=== PATIENT | female | born 1990 | race Caucasian/White ===

== ENCOUNTER 2016-12-24 15:50 | Emergency (ER) | payer OTHER ==
[2016-12-24 15:54] VITALS: BP 142/84; RESP 16; TEMP 97.3
[2016-12-24] MEDS ORDERED: IPRATROPIUM-ALBUTEROL 3 ML NEB INHALATION STA (16:08)
[2016-12-24] MEDS ORDERED: methylPREDNISolone SOD SUCCI 125 MG/2 ML VIAL IM STA (16:08)
[2016-12-24] MEDS ORDERED: diphenhydrAMINE 50 MG CAP PO STA (16:09)
--- NOTE | 2016-12-24 16:25 | XR ---
EXAMINATION TYPE: XR chest 2V DATE OF EXAM: 12/24/2016 COMPARISON: 01/30/2015 TECHNIQUE: PA and lateral views submitted. HISTORY: Cough FINDINGS: The lungs are clear and there is no pneumothorax, pleural effusion, or focal pneumonia. Mild hypert rophic change of the spine. IMPRESSION: 1. No acute process.
--- NOTE | 2016-12-24 16:41 | ED ---
Allergic Reaction HPI - General Chief complaint: Allergic Reaction Stated complaint: allergic reaction Time Seen by Provider: 12/24/16 16:01 Source: patient, RN notes reviewed Mode of arrival: ambulatory Limitations: no limitations - History of Present Illness Initial Comments: 26 yo female presents to the ER with cc of cough and shortness of breath. Patient states she's had this shortness of breath for about 2 weeks. Patient states she's been using her inhaler with no improvement. Patient allegedly therapy that she's not been giving her breathing treatment she cannot afford the treatment. Patient states then today shows around after holding her mother' s dog. Patient states it shoots to the left arm. Patient states that she hasn' t had any fever chills with this. Patient denies any increased shortness of breath since she noticed this rash. Patient states the shortness of breath was prior to the rash. Patient states she is not currently having any other symptoms at this time. Patient denies any recent fever, chills, chest pain, back pain, abdominal pain, nausea vomiting, numbness or tingling, dysuria or hematuria, constipation or diarrhea, headaches or visual changes, or any other current symptoms. - Related Data Home Medications Medication Instructions Recorded Confirmed Marlissa ( Control) 1 tab PO DAILY 08/27/16 08/27/16 Previous Rx's Medication Instructions Recorded Sulfamethox-Tmp 800-160Mg [Bactrim 1 tab PO Q12HR #28 tab 08/27/16 DS 800-160 mg] Albuterol Inhaler [Ventolin Hfa 1 - 2 puff INHALATION Q4-6H PRN #1 12/24/16 Inhaler] inhaler Albuterol Nebulized [Ventolin 2.5 mg INHALATION Q4H #20 nebu 12/24/16 Nebulized] diphenhydrAMINE [Benadryl] 50 mg PO HS PRN #5 capsule 12/24/16 predniSONE 50 mg PO DAILY #5 tab 12/24/16 Allergies Allergy/AdvReac Type Severity Reaction Status Date / Time gonzalez Allergy Rash/Hives Verified 12/24/16 15:51 gonzalez flavor Allergy Rash/Hives Verified 12/24/16 15:51 Penicillins Allergy Unknown Verified 12/24/16 15:51 Childhood Review of Systems ROS Statement: Those systems with pertinent positive or pertinent negative responses have been documented in the HPI. ROS Other: All systems not noted in ROS Statement are negative. Past Medical History Past Medical History: Asthma Additional Past Medical History / Comment(s): migraines History of Any Multi-Drug Resistant Organisms: None Reported Additional Past Surgical History / Comment(s): eye Past Psychological History: Anxiety, Bipolar, Depression, Schizophrenia Smoking Status: Current every day smoker Past Alcohol Use History: None Reported Past Drug Use History: Marijuana General Exam - General Exam Comments Initial Comments: General: The patient is awake and alert, in no distress, and does not appear acutely ill. Eye: Pupils are equal, round and reactive to light, extra-ocular movements are intact; there is normal conjunctiva bilaterally. No signs of icterus. Ears, nose, mouth and throat: There are moist mucous membranes. Neck: The neck is supple, there is no tenderness. Cardiovascular: There is a regular rate and rhythm. No murmur, rub or gallop is appreciated. Respiratory: Lungs are clear to auscultation, respirations are non-labored, breath sounds are equal. No wheezes, stridor, rales, or rhonchi. Gastrointestinal: Soft, non-distended, non-tender abdomen without masses or organomegaly noted. There is no rebound or guarding present. No CVA tenderness. Bowel sounds are unremarkable. Back: There is no tenderness to palpation in the midline. There is no obvious deformity. No rashes noted. Musculoskeletal: Normal ROM, no tenderness, There is no pedal edema. There is no calf tenderness or swelling. Sensation intact. Pulses equal bilaterally 2+. Neurological: CN II-XII intact, There are no obvious motor or sensory deficits. Coordination appears grossly intact. Speech is normal. Skin: Skin is warm and dry and she does appear to have mild urticaria to the left arm into the abdomen and back. Psychiatric: Cooperative, appropriate mood & affect, normal judgment. Limitations: no limitations Course Vital Signs 12/24/16 15:51 Temperature 97.3 F L Pulse Rate 93 Respiratory 16 Rate Blood Pressure 142/84 O2 Sat by Pulse 99 Oximetry Medical Decision Making - Medical Decision Making 26-year-old female presents with what appears to be an ALLERGIC reaction as well as asthma exacerbation at this time we well. The patient breathing treatment in chest x-ray. This time reviewed patient is feeling better. We give her prescription for breathing treatments for home as well as a new inhaler prescription as well as start patient steroids. We discussed taking Benadryl for itching. Discussed return parameters and follow-up. Patient is agreeable with plan QUESTIONS have been answered. They will be discharged home. - Radiology Data Radiology results: report reviewed, image reviewed Disposition Clinical Impression: Allergic reaction, Asthma exacerbation Disposition: HOME SELF-CARE Condition: Stable Instructions: Asthma (ED) Additional Instructions: Please use medication as discussed. Please follow up with family doctor if symptoms have not improved over the next two days. Please return to the emergency room if your symptoms increase or worsen or for any other concerns. Prescriptions: Albuterol Inhaler [Ventolin Hfa Inhaler] 1 - 2 puff INHALATION Q4-6H PRN #1 inhaler PRN Reason: Cough Albuterol Nebulized [Ventolin Nebulized] 2.5 mg INHALATION Q4H #20 nebu diphenhydrAMINE [Benadryl] 50 mg PO HS PRN #5 capsule PRN Reason: Itching predniSONE 50 mg PO DAILY #5 tab Referrals: Farzana Beasley MD [Primary Care Provider] - 1-2 days Time of Disposition: 16:44
[2016-12-24 17:02] VITALS: PULSE 82
== END 2016-12-24 17:01 | disposition home or self-care (01) ==
LOC: EC 15:50
DX: J45.901 Unspecified asthma with (acute) exacerbation (principal); T78.40XA Allergy, unspecified, initial encounter; F17.200 Nicotine dependence, unspecified, uncomplicated; Z79.3 Long term (current) use of hormonal contraceptives; Z88.0 Allergy status to penicillin; Z91.018 Allergy to other foods
CPT/HCPCS: 94640; 71020; 99283; 96372; J2930

== ENCOUNTER 2017-03-26 18:27 | Emergency (ER) | payer OTHER ==
[2017-03-26 18:39] VITALS: BP 126/81; PULSE 90; RESP 18; TEMP 99
--- NOTE | 2017-03-26 19:53 | ED ---
General Adult HPI - General Chief complaint: Skin/Abscess/Foreign Body Stated complaint: allergic reaction Time Seen by Provider: 03/26/17 19:34 Source: patient, RN notes reviewed Mode of arrival: ambulatory Limitations: no limitations - History of Present Illness Initial comments: 26-year-old female presents emergency chief complaint of hives. Patient history of 550 time that she's had hives. Patient states she saw her doctor they do not know with the complaint. Patient states they are itchy. Patient states she has not treated him anyway. Patient states she has not been any family care doctor for her eyes. Patient denies any new soaps or detergents in the house. Patient states that she has not had any other symptoms. Patient seen difficulty breathing or shortness of breath. Patient was concerned due to the hives so she thought that she should be evaluated.Patient denies any recent fever, chills, shortness of breath, chest pain, back pain, abdominal pain, nausea vomiting, numbness or tingling, dysuria or hematuria, constipation or diarrhea, headaches or visual changes, or any other current symptoms. - Related Data Home Medications Medication Instructions Recorded Confirmed Marlissa ( Control) 1 tab PO DAILY 08/27/16 08/27/16 Previous Rx's Medication Instructions Recorded Sulfamethox-Tmp 800-160Mg [Bactrim 1 tab PO Q12HR #28 tab 08/27/16 DS 800-160 mg] Albuterol Inhaler [Ventolin Hfa 1 - 2 puff INHALATION Q4-6H PRN #1 12/24/16 Inhaler] inhaler Albuterol Nebulized [Ventolin 2.5 mg INHALATION Q4H #20 nebu 12/24/16 Nebulized] diphenhydrAMINE [Benadryl] 50 mg PO HS PRN #5 capsule 12/24/16 predniSONE 50 mg PO DAILY #5 tab 12/24/16 diphenhydrAMINE [Benadryl] 50 mg PO HS PRN #5 capsule 03/26/17 predniSONE 50 mg PO DAILY #5 tab 03/26/17 Allergies Allergy/AdvReac Type Severity Reaction Status Date / Time bee venom protein (honey bee) Allergy Swelling Verified 03/26/17 18:39 gonzalez Allergy Rash/Hives Verified 03/26/17 18:39 gonzalez flavor Allergy Rash/Hives Verified 03/26/17 18:39 Penicillins Allergy Unknown Verified 03/26/17 18:39 Childhood Review of Systems ROS Statement: Those systems with pertinent positive or pertinent negative responses have been documented in the HPI. ROS Other: All systems not noted in ROS Statement are negative. Past Medical History Past Medical History: Asthma Additional Past Medical History / Comment(s): migraines History of Any Multi-Drug Resistant Organisms: None Reported Past Surgical History: Section Additional Past Surgical History / Comment(s): eye Past Psychological History: Anxiety, Bipolar, Depression, Schizophrenia Smoking Status: Current every day smoker Past Alcohol Use History: None Reported Past Drug Use History: Marijuana General Exam Limitations: no limitations General appearance: alert, in no apparent distress ENT exam: Present: normal exam, mucous membranes moist Neck exam: Present: normal inspection. Absent: tenderness, meningismus, lymphadenopathy Respiratory exam: Present: normal lung sounds bilaterally. Absent: respiratory distress, wheezes, rales, rhonchi, stridor Cardiovascular Exam: Present: regular rate, normal rhythm, normal heart sounds. Absent: systolic murmur, diastolic murmur, rubs, gallop, clicks Neurological exam: Present: alert, oriented X3 Psychiatric exam: Present: normal affect, normal mood Skin exam: Present: warm, dry, intact, urticaria Course Vital Signs 03/26/17 18:37 Temperature 99.0 F Pulse Rate 90 Respiratory 18 Rate Blood Pressure 126/81 O2 Sat by Pulse 96 Oximetry Medical Decision Making - Medical Decision Making 26-year-old female presents with urticaria. At this time the patient will be started on steroids. We discussed continued follow-up possibly an store standards associate or engineering geologist. We discussed return parameters all patient's questions. He stated the Luis they are given plan. All questions. Patient will be discharged. Disposition Clinical Impression: Urticaria Disposition: HOME SELF-CARE Condition: Stable Instructions: Urticaria (ED) Additional Instructions: Please use medication as discussed. Please follow up with family doctor if symptoms have not improved over the next two days. Please return to the emergency room if your symptoms increase or worsen or for any other concerns. Prescriptions: diphenhydrAMINE [Benadryl] 50 mg PO HS PRN #5 capsule PRN Reason: Itching predniSONE 50 mg PO DAILY #5 tab Referrals: Farzana Beasley MD [Primary Care Provider] - 1-2 days Time of Disposition: 19:53
== END 2017-03-26 19:58 | disposition home or self-care (01) ==
LOC: EC 18:27
DX: L50.9 Urticaria, unspecified (principal); F17.200 Nicotine dependence, unspecified, uncomplicated; Z79.3 Long term (current) use of hormonal contraceptives; Z88.0 Allergy status to penicillin; Z91.030 Bee allergy status; Z91.018 Allergy to other foods
CPT/HCPCS: 99283

== ENCOUNTER 2017-04-06 23:39 | Emergency (ER) | payer OTHER ==
--- NOTE | 2017-04-07 00:13 | ED ---
General Adult HPI - General Chief complaint: Abdominal Pain Stated complaint: abd pain Time Seen by Provider: 04/06/17 23:51 Source: patient, RN notes reviewed Mode of arrival: ambulatory Limitations: no limitations - History of Present Illness Initial comments: This is a 26-year-old female who presents to emergency department with chief complaint of lower abdominal pain for one week. Pain is described as cramping, worsening with any movement including walking and ascending stairs. Pain is relieved at rest. Patient reports taking Tylenol without relief. She has had a normal appetite but does feel nauseous. She states she is sexually active and claims that there is a possibility she could be . Patient claims she is supposed to be on control but has not had it refilled. Her recent periods are described as fluctuating between spotting and heavy flow. Denies fever, chills, chest pain, shortness of breath, vomiting, diarrhea, dysuria, hematuria, numbess, tingling, headache or vision changes. - Related Data Home Medications Medication Instructions Recorded Confirmed Marlissa ( Control) 1 tab PO DAILY 08/27/16 08/27/16 Previous Rx's Medication Instructions Recorded Sulfamethox-Tmp 800-160Mg [Bactrim 1 tab PO Q12HR #28 tab 08/27/16 DS 800-160 mg] Albuterol Inhaler [Ventolin Hfa 1 - 2 puff INHALATION Q4-6H PRN #1 12/24/16 Inhaler] inhaler Albuterol Nebulized [Ventolin 2.5 mg INHALATION Q4H #20 nebu 12/24/16 Nebulized] diphenhydrAMINE [Benadryl] 50 mg PO HS PRN #5 capsule 12/24/16 predniSONE 50 mg PO DAILY #5 tab 12/24/16 diphenhydrAMINE [Benadryl] 50 mg PO HS PRN #5 capsule 03/26/17 predniSONE 50 mg PO DAILY #5 tab 03/26/17 Allergies Allergy/AdvReac Type Severity Reaction Status Date / Time bee venom protein (honey bee) Allergy Swelling Verified 04/06/17 23:46 gonzalez Allergy Rash/Hives Verified 04/06/17 23:46 gonzalez flavor Allergy Rash/Hives Verified 04/06/17 23:46 Penicillins Allergy Unknown Verified 04/06/17 23:46 Childhood Review of Systems ROS Statement: Those systems with pertinent positive or pertinent negative responses have been documented in the HPI. ROS Other: All systems not noted in ROS Statement are negative. Past Medical History Past Medical History: Asthma Additional Past Medical History / Comment(s): migraines History of Any Multi-Drug Resistant Organisms: None Reported Past Surgical History: Section Additional Past Surgical History / Comment(s): eye Past Psychological History: Anxiety, Bipolar, Depression, Schizophrenia Smoking Status: Current every day smoker Past Alcohol Use History: Occasional Past Drug Use History: Marijuana General Exam - General Exam Comments Initial Comments: General: Awake and alert, well-developed; in no apparent distress. HEENT: Head atraumatic, normocephalic. Pupils are equal, round and reactive to light. Extraocular movements intact. Oropharynx moist without erythema or exudate. Neck: Supple. Normal ROM. No JVD. Trachea midline. No adenopathy. Cardiovascular: Regular rate and rhythm. No murmurs, rubs or gallops. Chest symmetrical. Respiratory: Lungs clear to auscultation bilaterally. No wheezes, rales or rhonchi. Normal respiratory efffort with no use of accessory muscles. Abdomen: Soft, non-distended. Mild tenderness along midline abdomen, more so in lower abdomen. No rigidity, rebound or guarding. Normal bowel sounds in all 4 quadrants. Skin: [place], warm and dry. Neurological: Alert and oriented x3. CN II-XII grossly intact. Speech is fluent and answers are appropriate. No focal neuro deficits. Psychiatric: Normal mood and affect. No overt signs of depression or anxiety noted. Limitations: no limitations Course Vital Signs 04/06/17 23:41 Temperature 98.0 F Pulse Rate 117 H Respiratory 20 Rate Blood Pressure 128/85 O2 Sat by Pulse 99 Oximetry Medical Decision Making - Medical Decision Making This is a 26-year-old female who presented with lower abdominal pain. She is in no acute distress and appears well. Physical exam was relatively benign with mild lower abdominal tenderness. CBC and CMP were unremarkable. UA was normal. test was negative. Patient was informed the next step management would be a pelvic exam but she defers it at this time. She would look to follow up with her primary care provider. She states that she has an appointment scheduled for this Tuesday. This case was discussed with attending physician, Dr. Aguilera. Disposition Clinical Impression: Abdominal pain Disposition: HOME SELF-CARE Condition: Good Instructions: Abdominal Pain (ED) Additional Instructions: Please follow up with your primary care provider in 1-2 days. Please return to the emergency department if symptoms worsen. Referrals: Farzana Beasley MD [Primary Care Provider] - 1-2 days Time of Disposition: 01:08
[2017-04-07 00:21] LABS: Appearance,Urine Clear (Clear); Basophils % (A) 0 %; Bilirubin,Urine Negative (Negative); CH 29.2; CHCM 33.2; Eosinophils # (A) 0.2 k/uL (0-0.7); Eosinophils % (A) 2 %; Glucose,Urine (UA) Negative (Negative); HCT 44.4 % (34.0-46.0); HDW 2.52; HGB 14.1 gm/dL (11.4-16.0); Ketones,Urine Negative (Negative); Leukocyte Esterase,Urine Negative (Negative); Luc # (Auto) 0.14; Luc % (Auto) 1; Lymphocytes # (A) 2.1 k/uL (1.0-4.8); Lymphocytes % (A) 22 %; MCH 28.1 pg (25.0-35.0); MCHC 31.8 g/dL (31.0-37.0); MCV 88.5 fL (80.0-100.0); Mean Platelet Volume 6.7; Monocytes # (A) 0.5 k/uL (0-1.0); Monocytes % (A) 5 %; Neutrophils # (A) 6.7 k/uL (1.3-7.7); Neutrophils % (A) 69 %; Nitrite,Urine Negative (Negative); Protein,Urine Negative (Negative); RBC 5.02 m/uL (3.80-5.40); RDW 15.2 % (11.5-15.5); Specific Gravity,Urine 1.012 (1.001-1.035); UA Billing (MACRO vs. MICRO) CHEM; Urobilinogen,Urine <2.0 mg/dL (<2.0); WBC 9.7 k/uL (3.8-10.6)
[2017-04-07 00:31] LABS: ALT 40 U/L (9-52); AST 18 U/L (14-36); Alkaline Phosphatase 89 U/L (38-126); Anion Gap 11 mmol/L; Blood Urea Nitrogen 12 mg/dL (7-17); Calcium 8.9 mg/dL (8.4-10.2); Carbon Dioxide 20 mmol/L (22-30); Chloride 108 mmol/L (98-107); Glucose 94 mg/dL (74-99); Non-African American GFR(MDRD) >60 (>60 ml/min/1.73 sqM); Potassium 4.1 mmol/L (3.5-5.1); Sodium 139 mmol/L (137-145); Total Bilirubin 0.4 mg/dL (0.2-1.3); Total Protein 6.9 g/dL (6.3-8.2)
[2017-04-07 00:50] VITALS: BP 118/75; PULSE 92; RESP 18; TEMP 97.8
== END 2017-04-07 01:18 | disposition home or self-care (01) ==
LOC: EC 23:39
DX: R10.30 Lower abdominal pain, unspecified (principal); R11.0 Nausea; F17.200 Nicotine dependence, unspecified, uncomplicated; Z79.3 Long term (current) use of hormonal contraceptives; Z88.0 Allergy status to penicillin; Z91.018 Allergy to other foods; Z91.030 Bee allergy status
CPT/HCPCS: 36415; 80053; 81003; 81025; 85025; 99284

== ENCOUNTER 2017-04-13 23:09 | Emergency (ER) | payer OTHER ==
[2017-04-13 23:15] VITALS: RESP 18
[2017-04-14 00:07] VITALS: BP 140/79; PULSE 82; TEMP 97.2
[2017-04-14] MEDS ORDERED: SODIUM CHLORIDE 0.9% 1,000 ML IV STA (00:23)
[2017-04-14] MEDS ORDERED: KETOROLAC 30 MG/ML 1 ML VIAL IVP STA (00:23)
[2017-04-14] MEDS ORDERED: diphenhydrAMINE 50 MG/ML 1 ML VIAL IVP STA (00:23)
[2017-04-14] MEDS ORDERED: METOCLOPRAMIDE 5 MG/ML 2 ML VIAL IVP STA (00:23)
[2017-04-14] MEDS ORDERED: ACETAMINOPHEN TAB 500 MG TAB PO STA (00:24)
[2017-04-14] MEDS ORDERED: ORPHENADRINE 30 MG/ML 2 ML VIAL IVP STA (00:25)
--- NOTE | 2017-04-14 00:31 | ED ---
Headache HPI - General Chief Complaint: Headache Stated Complaint: Ear Pain Time Seen by Provider: 04/13/17 23:56 Source: RN notes reviewed, old records reviewed Mode of arrival: ambulatory Limitations: no limitations - History of Present Illness Initial Comments: this is a 18-year-old female presents emergency Department chief complaint of a migraine-like headache for one day. Patient reports that she went to bed with a migraine headache and reports that she's had a couple episodes of vomiting. She reports that she's also had some intermittent lower abdominal pain, but denies any dysuria or changes in bowel movements. She states that it is not very severe. She states that her headache is now radiating towards her lower jaw and complains of left ear ache. Denies any difficulty swallowing or dental pain. Patient states she's had no fever or chills denies any neck pain. She reports that she has a history of migraines and this feels similar to previous migraines. She states she has not taken any medication to help with a migraine at this time. - Related Data Home Medications Medication Instructions Recorded Confirmed Marlissa ( Control) 1 tab PO DAILY 08/27/16 08/27/16 Previous Rx's Medication Instructions Recorded Sulfamethox-Tmp 800-160Mg [Bactrim 1 tab PO Q12HR #28 tab 08/27/16 DS 800-160 mg] Albuterol Inhaler [Ventolin Hfa 1 - 2 puff INHALATION Q4-6H PRN #1 12/24/16 Inhaler] inhaler Albuterol Nebulized [Ventolin 2.5 mg INHALATION Q4H #20 nebu 12/24/16 Nebulized] diphenhydrAMINE [Benadryl] 50 mg PO HS PRN #5 capsule 12/24/16 predniSONE 50 mg PO DAILY #5 tab 12/24/16 diphenhydrAMINE [Benadryl] 50 mg PO HS PRN #5 capsule 03/26/17 predniSONE 50 mg PO DAILY #5 tab 03/26/17 Azithromycin [Zithromax Z-pack] 250 mg PO DIRECTED #6 tab 04/14/17 Allergies Allergy/AdvReac Type Severity Reaction Status Date / Time bee venom protein (honey bee) Allergy Swelling Verified 04/13/17 23:14 gonzalez Allergy Rash/Hives Verified 04/13/17 23:14 gonzalez flavor Allergy Rash/Hives Verified 04/13/17 23:14 Penicillins Allergy Unknown Verified 04/13/17 23:14 Childhood Review of Systems ROS Statement: Those systems with pertinent positive or pertinent negative responses have been documented in the HPI. ROS Other: All systems not noted in ROS Statement are negative. Past Medical History Past Medical History: Asthma Additional Past Medical History / Comment(s): migraines History of Any Multi-Drug Resistant Organisms: None Reported Past Surgical History: Section Additional Past Surgical History / Comment(s): eye Past Psychological History: Anxiety, Bipolar, Depression, Schizophrenia Smoking Status: Current every day smoker Past Alcohol Use History: Occasional Past Drug Use History: Marijuana General Exam - General Exam Comments Initial Comments: this is a 18-year-old female. No acute distress. Limitations: no limitations General appearance: alert Head exam: Present: atraumatic, normocephalic, normal inspection Eye exam: Present: normal appearance, PERRL, EOMI. Absent: scleral icterus, conjunctival injection, periorbital swelling ENT exam: Present: normal exam, mucous membranes moist. Absent: TM's normal bilaterally (left TM slight erythema ) Neck exam: Present: normal inspection. Absent: tenderness, meningismus, lymphadenopathy Respiratory exam: Present: normal lung sounds bilaterally. Absent: respiratory distress, wheezes, rales, rhonchi, stridor Cardiovascular Exam: Present: regular rate, normal rhythm, normal heart sounds. Absent: systolic murmur, diastolic murmur, rubs, gallop, clicks GI/Abdominal exam: Present: soft, normal bowel sounds. Absent: distended, tenderness, guarding, rebound, rigid Extremities exam: Present: normal inspection, full ROM, normal capillary refill. Absent: tenderness, pedal edema, joint swelling, calf tenderness Back exam: Present: normal inspection Neurological exam: Present: alert, oriented X3, CN II-XII intact Expanded Patient oriented to: Present: person, place, time Speech: Present: fluid speech Cranial nerves: EOM's Intact: Normal, Facial Sensation: Normal Cerebellar function: Finger to Nose: Normal Upper motor neuron: Pronator Drift: Normal Sensory exam: Upper Extremity Light Touch: Normal, Lower Extremity Light Touch: Normal Motor strength exam: RUE: 5, LUE: 5, RLE: 5, LLE: 5 Eye Response: (4) open spontaneously Motor Response: (6) obeys commands Verbal Response: (5) oriented [place] Total: 15 Psychiatric exam: Present: normal affect, normal mood Skin exam: Present: warm, dry, intact, normal color. Absent: rash Course Vital Signs 04/13/17 04/14/17 23:13 00:04 Temperature 98.5 F 97.2 F L Pulse Rate 109 H 82 Respiratory 18 18 Rate Blood Pressure 130/87 140/79 O2 Sat by Pulse 98 97 Oximetry Medical Decision Making - Medical Decision Making this is a 18-year-old female presents emergency Department chief complaint of a migraine-like headache for one day. Patient reports that she went to bed with a migraine headache and reports that she's had a couple episodes of vomiting. She reports that she's also had some intermittent lower abdominal pain, She states that her headache is now radiating towards her lower jaw and complains of left ear ache. Patient is neurologically intact, she does have some photophobia related to this migraine and also has slightly erythematous left TM. Patient has no meningeal signs. Patient received IV fluids, norflex, toradol, reglan and benadryl. She reports that her headache has subsided and she feels 100% better. Patient will be started on azithromycin for ear infection, discussed that her blood work was all within normal limits. Patient agrees to treatmetn plan and will comply, return parameters discussed. - Lab Data Result diagrams: 04/14/17 00:53 04/14/17 00:53 Lab Results 04/14/17 04/14/17 04/14/17 Range/Units 00:47 00:47 00:53 WBC 8.3 (3.8-10.6) k/uL RBC 5.08 (3.80-5.40) m/uL Hgb 14.3 (11.4-16.0) gm/dL Hct 45.4 (34.0-46.0) % MCV 89.4 (80.0-100.0) fL MCH 28.2 (25.0-35.0) pg MCHC 31.6 (31.0-37.0) g/dL RDW 15.4 (11.5-15.5) % Plt Count 200 (150-450) k/uL Neutrophils % 67 % Lymphocytes % 24 % Monocytes % 6 % Eosinophils % 2 % Basophils % 0 % Neutrophils # 5.6 (1.3-7.7) k/uL Lymphocytes # 2.0 (1.0-4.8) k/uL Monocytes # 0.5 (0-1.0) k/uL Eosinophils # 0.2 (0-0.7) k/uL Basophils # 0.0 (0-0.2) k/uL Sodium (137-145) mmol/L Potassium (3.5-5.1) mmol/L Chloride (98-107) mmol/L Carbon Dioxide (22-30) mmol/L Anion Gap mmol/L BUN (7-17) mg/dL Creatinine (0.52-1.04) mg/dL Est GFR (MDRD) Af Amer (>60 ml/min/1.73 sqM) Est GFR (MDRD) Non-Af (>60 ml/min/1.73 sqM) Glucose (74-99) mg/dL Calcium (8.4-10.2) mg/dL Total Bilirubin (0.2-1.3) mg/dL AST (14-36) U/L ALT (9-52) U/L Alkaline Phosphatase (38-126) U/L Total Protein (6.3-8.2) g/dL Albumin (3.5-5.0) g/dL Urine Color Light Yellow Urine Appearance Cloudy H (Clear) Urine pH 7.0 (5.0-8.0) Ur Specific Start 1.007 (1.001-1.035) Urine Protein Negative (Negative) Urine Glucose (UA) Negative (Negative) Urine Ketones Negative (Negative) Urine Blood Small H (Negative) Urine Nitrite Negative (Negative) Urine Bilirubin Negative (Negative) Urine Urobilinogen <2.0 (<2.0) mg/dL Ur Leukocyte Esterase Negative (Negative) Urine RBC 1 (0-5) /hpf Urine WBC 3 (0-5) /hpf Ur Squamous Epith Cells 6 H (0-4) /hpf Amorphous Sediment Rare H (None) /hpf Urine Bacteria Rare H (None) /hpf Urine HCG, Qual Not Detected (Not Detectd) 04/14/17 Range/Units 00:53 WBC (3.8-10.6) k/uL RBC (3.80-5.40) m/uL Hgb (11.4-16.0) gm/dL Hct (34.0-46.0) % MCV (80.0-100.0) fL MCH (25.0-35.0) pg MCHC (31.0-37.0) g/dL RDW (11.5-15.5) % Plt Count (150-450) k/uL Neutrophils % % Lymphocytes % % Monocytes % % Eosinophils % % Basophils % % Neutrophils # (1.3-7.7) k/uL Lymphocytes # (1.0-4.8) k/uL Monocytes # (0-1.0) k/uL Eosinophils # (0-0.7) k/uL Basophils # (0-0.2) k/uL Sodium 140 (137-145) mmol/L Potassium 3.9 (3.5-5.1) mmol/L Chloride 105 (98-107) mmol/L Carbon Dioxide 24 (22-30) mmol/L Anion Gap 11 mmol/L BUN 13 (7-17) mg/dL Creatinine 0.80 (0.52-1.04) mg/dL Est GFR (MDRD) Af Amer >60 (>60 ml/min/1.73 sqM) Est GFR (MDRD) Non-Af >60 (>60 ml/min/1.73 sqM) Glucose 89 (74-99) mg/dL Calcium 9.4 (8.4-10.2) mg/dL Total Bilirubin 0.4 (0.2-1.3) mg/dL AST 24 (14-36) U/L ALT 42 (9-52) U/L Alkaline Phosphatase 81 (38-126) U/L Total Protein 6.7 (6.3-8.2) g/dL Albumin 4.0 (3.5-5.0) g/dL Urine Color Urine Appearance (Clear) Urine pH (5.0-8.0) Ur Specific Start (1.001-1.035) Urine Protein (Negative) Urine Glucose (UA) (Negative) Urine Ketones (Negative) Urine Blood (Negative) Urine Nitrite (Negative) Urine Bilirubin (Negative) Urine Urobilinogen (<2.0) mg/dL Ur Leukocyte Esterase (Negative) Urine RBC (0-5) /hpf Urine WBC (0-5) /hpf Ur Squamous Epith Cells (0-4) /hpf Amorphous Sediment (None) /hpf Urine Bacteria (None) /hpf Urine HCG, Qual (Not Detectd) Disposition Clinical Impression: Migraine, Otitis media Disposition: HOME SELF-CARE Condition: Good Instructions: Migraine Headache (ED) Additional Instructions: patient has to rest, increase fluids. Take nausea medicine if Migraine her nausea reoccurs. Take the antibiotic for the ear infection. Return to the emergency department if any alarming signs or symptoms occur. Prescriptions: Azithromycin [Zithromax Z-pack] 250 mg PO DIRECTED #6 tab Referrals: Farzana Beasley MD [Primary Care Provider] - 1-2 days Time of Disposition: 01:54
[2017-04-14 01:24] LABS: Basophils % (A) 0 %; CH 29.7; CHCM 33.4; Eosinophils # (A) 0.2 k/uL (0-0.7); Eosinophils % (A) 2 %; HCT 45.4 % (34.0-46.0); HDW 2.48; HGB 14.3 gm/dL (11.4-16.0); Luc # (Auto) 0.11; Luc % (Auto) 1; Lymphocytes % (A) 24 %; MCH 28.2 pg (25.0-35.0); MCHC 31.6 g/dL (31.0-37.0); MCV 89.4 fL (80.0-100.0); Mean Platelet Volume 6.9; Monocytes # (A) 0.5 k/uL (0-1.0); Monocytes % (A) 6 %; Neutrophils # (A) 5.6 k/uL (1.3-7.7); Neutrophils % (A) 67 %; RBC 5.08 m/uL (3.80-5.40); RDW 15.4 % (11.5-15.5); WBC 8.3 k/uL (3.8-10.6); WBC (Perox) 8.08
[2017-04-14 01:25] LABS: Amorphous Sediment,Urine Rare /hpf; Appearance,Urine Cloudy (Clear); Bacteria,Urine Rare /hpf; Bilirubin,Urine Negative (Negative); Glucose,Urine (UA) Negative (Negative); Ketones,Urine Negative (Negative); Leukocyte Esterase,Urine Negative (Negative); Nitrite,Urine Negative (Negative); Particle Count 3836; Protein,Urine Negative (Negative); RBC,Urine 1 /hpf (0-5); Specific Gravity,Urine 1.007 (1.001-1.035); Squamous Epithelial Cell,Urine 6 /hpf (0-4); UA Billing (MACRO vs. MICRO) MICRO; Urobilinogen,Urine <2.0 mg/dL (<2.0); WBC,Urine 3 /hpf (0-5)
[2017-04-14 01:49] LABS: ALT 42 U/L (9-52); AST 24 U/L (14-36); Alkaline Phosphatase 81 U/L (38-126); Anion Gap 11 mmol/L; Blood Urea Nitrogen 13 mg/dL (7-17); Calcium 9.4 mg/dL (8.4-10.2); Carbon Dioxide 24 mmol/L (22-30); Chloride 105 mmol/L (98-107); Glucose 89 mg/dL (74-99); Non-African American GFR(MDRD) >60 (>60 ml/min/1.73 sqM); Potassium 3.9 mmol/L (3.5-5.1); Sodium 140 mmol/L (137-145); Total Bilirubin 0.4 mg/dL (0.2-1.3); Total Protein 6.7 g/dL (6.3-8.2)
[2017-04-14] MEDS ORDERED: ONDANSETRON 4 MG ODT STARTER PACK 2 TAB BTL PO STA (02:00)
== END 2017-04-14 02:12 | disposition home or self-care (01) ==
LOC: EC 23:09
DX: H66.92 Otitis media, unspecified, left ear (principal); G43.909 Migraine, unspecified, not intractable, without status migrainosus; R11.10 Vomiting, unspecified; F17.200 Nicotine dependence, unspecified, uncomplicated; Z79.3 Long term (current) use of hormonal contraceptives
CPT/HCPCS: 99284 ×2; 96374 ×2; 96375 ×4; 96361 ×2; 36415; 80053; 85025; 81001; 81025; J1200; J2360; J2765; J1885; S0119

== ENCOUNTER 2017-08-02 21:24 | Emergency (ER) | payer OTHER ==
[2017-08-02 21:48] VITALS: BP 145/92; PULSE 95; RESP 16; TEMP 97.5
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
== END 2017-08-02 22:35 | disposition home or self-care (01) ==
LOC: EC 21:24
DX: J02.9 Acute pharyngitis, unspecified (principal); F17.200 Nicotine dependence, unspecified, uncomplicated; Z88.0 Allergy status to penicillin; Z91.018 Allergy to other foods; Z91.030 Bee allergy status
CPT/HCPCS: 99283

== ENCOUNTER 2018-01-18 19:22 | Emergency (ER) | payer OTHER ==
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
[2018-01-18 21:32] LABS: Amphetamine Screen,Urine Not Detected (NotDetected); Barbiturate Screen,Urine Not Detected (NotDetected); Benzodiazepines Screen,Urine Not Detected (NotDetected); Cocaine Screen,Urine Not Detected (NotDetected); Methadone Screen, Urine Not Detected (NotDetected); Opiate Screen,Urine Not Detected (NotDetected); Oxycodone Screen, Urine Not Detected (NotDetected); Phencyclidine Screen,Urine Not Detected (NotDetected); Tricyclic Antidepressant,Urine Not Detected (NotDetected); Urn Cannabinoid Scrn Detected (NotDetected)
[2018-01-18 23:59] VITALS: BP 141/74; PULSE 87; RESP 16; TEMP 98
== END 2018-01-18 23:45 | disposition home or self-care (01) ==
LOC: EC 19:22
DX: S09.92XA Unspecified injury of nose, initial encounter (principal); R51 Headache; R45.851 Suicidal ideations; F17.200 Nicotine dependence, unspecified, uncomplicated; Z79.899 Other long term (current) drug therapy; Y00.XXXA Assault by blunt object, initial encounter
CPT/HCPCS: 80306; 81025; 99285

== ENCOUNTER 2018-03-19 11:25 | Emergency (ER) | payer OTHER ==
[2018-03-19] MEDS ORDERED: METOCLOPRAMIDE 5 MG/ML 2 ML VIAL IVP STA (11:44)
[2018-03-19] MEDS ORDERED: SODIUM CHLORIDE 0.9% 1,000 ML IV STA (11:44)
[2018-03-19] MEDS ORDERED: diphenhydrAMINE 50 MG/ML 1 ML VIAL IVP STA (11:44)
--- NOTE | 2018-03-19 11:47 | ED ---
Abdominal Pain HPI - General Chief Complaint: Abdominal Pain Stated Complaint: Abd Pain Time Seen by Provider: 03/19/18 11:33 Source: patient, RN notes reviewed, old records reviewed Mode of arrival: ambulatory Limitations: no limitations - History of Present Illness Initial Comments: this Patient this time 7-year-old female presents emergency Department chief complaint of nausea, occasional abdominal pain for the past week. reports that the pain has been intermittent. Patient states that she's had no fevers or chills. She reports that she is concerned she could possibly be as she is one week late on her menstrual cycle. Patient is a female. Patient states that she's had no hematemesis or melena. Reports occasional diarrhea. Patient states she is no dysuria or hematuria. No abnormal vaginal bleeding or discharge. - Related Data Home Medications Medication Instructions Recorded Confirmed Ibuprofen [Advil] 400 mg PO Q8HR PRN 01/18/18 01/18/18 diphenhydrAMINE [Benadryl] 25 mg PO DAILY 01/18/18 01/18/18 diphenhydrAMINE [Benadryl] 50 mg PO HS 01/18/18 01/18/18 Previous Rx's Medication Instructions Recorded Nitrofurantoin Monohyd/M-Cryst 100 mg PO Q12HR #14 cap 03/19/18 [Macrobid] Eiv-Vqgx-Uskmi Acid 1 cap PO DAILY #20 cap 03/19/18 [-U Capsule (formulary)] Allergies Allergy/AdvReac Type Severity Reaction Status Date / Time bee venom protein (honey bee) Allergy Swelling Verified 03/19/18 11:31 gonzalez Allergy Rash/Hives Verified 03/19/18 11:31 gonzalez flavor Allergy Rash/Hives Verified 03/19/18 11:31 Penicillins Allergy Unknown Verified 03/19/18 11:31 Childhood atomoxetine [From Strattera] AdvReac SUCIDAL Verified 03/19/18 11:31 Review of Systems ROS Statement: Those systems with pertinent positive or pertinent negative responses have been documented in the HPI. ROS Other: All systems not noted in ROS Statement are negative. Past Medical History Past Medical History: Asthma Additional Past Medical History / Comment(s): migraines History of Any Multi-Drug Resistant Organisms: None Reported Past Surgical History: Section Additional Past Surgical History / Comment(s): eye Past Psychological History: Anxiety, Bipolar, Depression, Schizophrenia Smoking Status: Current every day smoker Past Alcohol Use History: Occasional Past Drug Use History: Marijuana General Exam - General Exam Comments Initial Comments: This is a 27-year-old female. Limitations: no limitations General appearance: alert, in no apparent distress Head exam: Present: atraumatic, normocephalic, normal inspection Eye exam: Present: normal appearance, PERRL, EOMI. Absent: scleral icterus, conjunctival injection, periorbital swelling ENT exam: Present: normal exam, mucous membranes moist Neck exam: Present: normal inspection. Absent: tenderness, meningismus, lymphadenopathy Respiratory exam: Present: normal lung sounds bilaterally. Absent: respiratory distress, wheezes, rales, rhonchi, stridor Cardiovascular Exam: Present: regular rate, normal rhythm, normal heart sounds. Absent: systolic murmur, diastolic murmur, rubs, gallop, clicks GI/Abdominal exam: Present: soft, normal bowel sounds. Absent: distended, tenderness, guarding, rebound, rigid Extremities exam: Present: normal inspection, full ROM, normal capillary refill. Absent: tenderness, pedal edema, joint swelling, calf tenderness Back exam: Present: normal inspection Neurological exam: Present: alert, oriented X3, CN II-XII intact Psychiatric exam: Present: normal affect, normal mood Skin exam: Present: warm, dry, intact, normal color. Absent: rash Course Vital Signs 03/19/18 03/19/18 11:29 12:59 Temperature 97.5 F L 98.1 F Pulse Rate 76 75 Respiratory 20 18 Rate Blood Pressure 106/71 140/70 O2 Sat by Pulse 100 99 Oximetry Medical Decision Making - Medical Decision Making 27-year-old feel presents today with concern for possibly . She lives of symptoms of lower abdominal pain intermittently, she was a week after her period. At this time patient's hCG was 450. Patient has no vaginal bleeding or discharge. Patient at this time laboratory was unremarkable. HCG level IS 450. Rh+ blood type. I discussed that she's too early to detect Patient with her . Discussed that she should follow-up with [facility] and recommended ultrasound. SHE IS A G7 FEMALE THIS TIME. SHE IS UP WITH [facility] AND WE'LL START THE PATIENT ON PRENATALS. I DISCUSSED RETURN PARAMETERS. PATIENT IS HISTORY PLAN WILL COMPLY. RETURN PARAMETERS WERE DISCUSSED. - Lab Data Result diagrams: 03/19/18 11:50 03/19/18 11:50 Lab Results 03/19/18 03/19/18 03/19/18 Range/Units 11:50 11:50 11:50 WBC 6.8 (3.8-10.6) k/uL RBC 5.06 (3.80-5.40) m/uL Hgb 13.2 (11.4-16.0) gm/dL Hct 42.6 (34.0-46.0) % MCV 84.0 (80.0-100.0) fL MCH 26.0 (25.0-35.0) pg MCHC 31.0 (31.0-37.0) g/dL RDW 15.0 (11.5-15.5) % Plt Count 217 (150-450) k/uL Neutrophils % 69 % Lymphocytes % 22 % Monocytes % 4 % Eosinophils % 4 % Basophils % 1 % Neutrophils # 4.7 (1.3-7.7) k/uL Lymphocytes # 1.5 (1.0-4.8) k/uL Monocytes # 0.3 (0-1.0) k/uL Eosinophils # 0.3 (0-0.7) k/uL Basophils # 0.0 (0-0.2) k/uL Hypochromasia Slight Sodium 141 (137-145) mmol/L Potassium 3.8 (3.5-5.1) mmol/L Chloride 108 H (98-107) mmol/L Carbon Dioxide 23 (22-30) mmol/L Anion Gap 10 mmol/L BUN 6 L (7-17) mg/dL Creatinine 0.72 (0.52-1.04) mg/dL Est GFR (CKD-EPI)AfAm >90 (>60 ml/min/1.73 sqM) Est GFR (CKD-EPI)NonAf >90 (>60 ml/min/1.73 sqM) Glucose 89 (74-99) mg/dL Calcium 8.7 (8.4-10.2) mg/dL Total Bilirubin 0.7 (0.2-1.3) mg/dL AST 16 (14-36) U/L ALT 23 (9-52) U/L Alkaline Phosphatase 66 (38-126) U/L Total Protein 7.5 (6.3-8.2) g/dL Albumin 4.5 (3.5-5.0) g/dL Amylase 47 (30-110) U/L Lipase 52 (23-300) U/L HCG, Quant 458.3 mIU/mL Urine Color Urine Appearance (Clear) Urine pH (5.0-8.0) Ur Specific [place] (1.001-1.035) Urine Protein (Negative) Urine Glucose (UA) (Negative) Urine Ketones (Negative) Urine Blood (Negative) Urine Nitrite (Negative) Urine Bilirubin (Negative) Urine Urobilinogen (<2.0) mg/dL Ur Leukocyte Esterase (Negative) Urine RBC (0-5) /hpf Urine WBC (0-5) /hpf Ur Squamous Epith Cells (0-4) /hpf Urine Bacteria (None) /hpf Urine Mucus (None) /hpf Urine Sperm (None) /hpf Urine HCG, Qual Detected (Not Detectd) Blood Type Blood Type Recheck 03/19/18 03/19/18 Range/Units 11:50 11:50 WBC (3.8-10.6) k/uL RBC (3.80-5.40) m/uL Hgb (11.4-16.0) gm/dL Hct (34.0-46.0) % MCV (80.0-100.0) fL MCH (25.0-35.0) pg MCHC (31.0-37.0) g/dL RDW (11.5-15.5) % Plt Count (150-450) k/uL Neutrophils % % Lymphocytes % % Monocytes % % Eosinophils % % Basophils % % Neutrophils # (1.3-7.7) k/uL Lymphocytes # (1.0-4.8) k/uL Monocytes # (0-1.0) k/uL Eosinophils # (0-0.7) k/uL Basophils # (0-0.2) k/uL Hypochromasia Sodium (137-145) mmol/L Potassium (3.5-5.1) mmol/L Chloride (98-107) mmol/L Carbon Dioxide (22-30) mmol/L Anion Gap mmol/L BUN (7-17) mg/dL Creatinine (0.52-1.04) mg/dL Est GFR (CKD-EPI)AfAm (>60 ml/min/1.73 sqM) Est GFR (CKD-EPI)NonAf (>60 ml/min/1.73 sqM) Glucose (74-99) mg/dL Calcium (8.4-10.2) mg/dL Total Bilirubin (0.2-1.3) mg/dL AST (14-36) U/L ALT (9-52) U/L Alkaline Phosphatase (38-126) U/L Total Protein (6.3-8.2) g/dL Albumin (3.5-5.0) g/dL Amylase (30-110) U/L Lipase (23-300) U/L HCG, Quant mIU/mL Urine Color Yellow Urine Appearance Cloudy H (Clear) Urine pH 6.0 (5.0-8.0) Ur Specific [place] 1.014 (1.001-1.035) Urine Protein Trace H (Negative) Urine Glucose (UA) Negative (Negative) Urine Ketones 2+ H (Negative) Urine Blood Negative (Negative) Urine Nitrite Negative (Negative) Urine Bilirubin Negative (Negative) Urine Urobilinogen <2.0 (<2.0) mg/dL Ur Leukocyte Esterase Small H (Negative) Urine RBC 1 (0-5) /hpf Urine WBC 9 H (0-5) /hpf Ur Squamous Epith Cells 6 H (0-4) /hpf Urine Bacteria Rare H (None) /hpf Urine Mucus Rare H (None) /hpf Urine Sperm Rare (None) /hpf Urine HCG, Qual (Not Detectd) Blood Type O Positive Blood Type Recheck No Disposition Clinical Impression: , Bacteriuria during Disposition: HOME SELF-CARE Condition: Good Instructions: (ED) Additional Instructions: Patient has follow-up with primary care physician. Return to emergency department if any alarming signs or symptoms occur. Take vitamins. Prescriptions: Nitrofurantoin Monohyd/M-Cryst [Macrobid] 100 mg PO Q12HR #14 cap Dcb-Xkin-Agzip Acid [-U Capsule (formulary)] 1 cap PO DAILY # 20 cap Is patient prescribed a controlled substance at d/c from ED?: No Referrals: Farzana Beasley MD [Primary Care Provider] - 1-2 days Sherry Pepper MD [STAFF PHYSICIAN] - 1-2 days Time of Disposition: 12:48
[2018-03-19 12:12] LABS: Appearance,Urine Cloudy (Clear); Bacteria,Urine Rare /hpf; Bilirubin,Urine Negative (Negative); Blood,Urine Negative (Negative); Color,Urine Yellow; Glucose,Urine (UA) Negative (Negative); Ketones,Urine 2+ (Negative); Leukocyte Esterase,Urine Small (Negative); Mucus,Urine Rare /hpf; Nitrite,Urine Negative (Negative); Protein,Urine Trace (Negative); RBC,Urine 1 /hpf (0-5); Specific Gravity,Urine 1.014 (1.001-1.035); Sperm,Urine Rare /hpf; Squamous Epithelial Cell,Urine 6 /hpf (0-4); Urobilinogen,Urine <2.0 mg/dL (<2.0); WBC,Urine 9 /hpf (0-5)
[2018-03-19 12:15] LABS: ALT 23 U/L (9-52); AST 16 U/L (14-36); Albumin 4.5 g/dL (3.5-5.0); Alkaline Phosphatase 66 U/L (38-126); Amylase 47 U/L (30-110); Anion Gap 10 mmol/L; Blood Urea Nitrogen 6 mg/dL (7-17); Calcium 8.7 mg/dL (8.4-10.2); Carbon Dioxide 23 mmol/L (22-30); Chloride 108 mmol/L (98-107); Glucose 89 mg/dL (74-99); Lipase 52 U/L (23-300); Potassium 3.8 mmol/L (3.5-5.1); Sodium 141 mmol/L (137-145); Total Bilirubin 0.7 mg/dL (0.2-1.3); Total Protein 7.5 g/dL (6.3-8.2)
[2018-03-19 12:19] LABS: Basophils % (A) 1 %; Eosinophils # (A) 0.3 k/uL (0-0.7); Eosinophils % (A) 4 %; HCT 42.6 % (34.0-46.0); HGB 13.2 gm/dL (11.4-16.0); Hypochromasia Slight; Lymphocytes # (A) 1.5 k/uL (1.0-4.8); Lymphocytes % (A) 22 %; Mean Platelet Volume 6.5; Monocytes # (A) 0.3 k/uL (0-1.0); Monocytes % (A) 4 %; Neutrophils # (A) 4.7 k/uL (1.3-7.7); Neutrophils % (A) 69 %; Platelet Count 217 k/uL (150-450); RBC 5.06 m/uL (3.80-5.40); WBC 6.8 k/uL (3.8-10.6)
[2018-03-19 12:31] LABS: HCG,Quantitative Serum 458.3 mIU/mL
[2018-03-19 13:02] VITALS: BP 140/70; PULSE 75; RESP 18; TEMP 98.1
== END 2018-03-19 12:59 | disposition home or self-care (01) ==
LOC: EC 11:25
DX: O99.89 Other specified diseases and conditions complicating pregnancy, childbirth and the puerperium (principal); R82.71 Bacteriuria; O26.891 Other specified pregnancy related conditions, first trimester; R10.9 Unspecified abdominal pain; R19.7 Diarrhea, unspecified; O99.331 Smoking (tobacco) complicating pregnancy, first trimester; F17.200 Nicotine dependence, unspecified, uncomplicated; Z79.899 Other long term (current) drug therapy; Z91.030 Bee allergy status; Z88.0 Allergy status to penicillin; Z88.8 Allergy status to other drugs, medicaments and biological substances; Z91.018 Allergy to other foods; Z3A.01 Less than 8 weeks gestation of pregnancy
CPT/HCPCS: 99284; 96374; 96375; 96361; 36415; 86900; 86901; 80053; 82150; 83690; 85025; 81001; 81025; 84702; 87086; J1200; J2765

== ENCOUNTER → 2018-03-23 | Outpatient (CLI) | payer OTHER | END | disposition home or self-care (01) | LOC: LABWHC1 10:38 | PROVIDERS: ATTEND Obstetrics & Gynecology | DX: N91.2 Amenorrhea, unspecified (principal) | CPT/HCPCS: 36415; 84702 ==

== ENCOUNTER → 2018-06-02 | Outpatient (CLI) | payer OTHER ==
[2018-06-03 02:43] LABS: Hemoglobin A1C 4.9 % (4.0-6.0)
== END ==
LOC: LABWHC1 14:11
PROVIDERS: ATTEND Obstetrics & Gynecology Maternal & Fetal Medicine
DX: Z33.1 Pregnant state, incidental (principal); Z3A.00 Weeks of gestation of pregnancy not specified
CPT/HCPCS: 36415; 82306; 82950; 83036

== ENCOUNTER 2018-09-25 12:37 | Outpatient (CLI) | payer OTHER ==
[2018-09-25 13:59] VITALS: BP 131/70; PULSE 110; RESP 18; TEMP 97.9
[2018-09-25 14:09] LABS: Basophils % (A) 0 %; Eosinophils # (A) 0.1 k/uL (0-0.7); Eosinophils % (A) 1 %; HCT 31.9 % (34.0-46.0); HGB 10.2 gm/dL (11.4-16.0); Hypochromasia Slight; Lymphocytes # (A) 0.6 k/uL (1.0-4.8); Lymphocytes % (A) 8 %; MCH 26.7 pg (25.0-35.0); MCV 83.4 fL (80.0-100.0); Monocytes # (A) 0.4 k/uL (0-1.0); Monocytes % (A) 5 %; Neutrophils % (A) 85 %; Platelet Count 149 k/uL (150-450); RBC 3.82 m/uL (3.80-5.40); RDW 15.6 % (11.5-15.5); WBC 7.1 k/uL (3.8-10.6)
[2018-09-25 14:15] LABS: Appearance,Urine Clear (Clear); Bacteria,Urine Few /hpf; Bilirubin,Urine Negative (Negative); Blood,Urine Negative (Negative); Color,Urine Yellow; Glucose,Urine (UA) Negative (Negative); Ketones,Urine 1+ (Negative); Leukocyte Esterase,Urine Large (Negative); Nitrite,Urine Negative (Negative); Protein,Urine 1+ (Negative); RBC,Urine 7 /hpf (0-5); Specific Gravity,Urine 1.013 (1.001-1.035); Squamous Epithelial Cell,Urine 2 /hpf (0-4); WBC,Urine 17 /hpf (0-5)
--- NOTE | 2018-10-17 10:43 | P.MSEPDOC ---
Presenting Problems - Arrival Data Date of Arrival on Unit: 09/25/18 Time of Arrival on Unit: 12:30 Mode of Transport: Wheelchair - Complaint OB-Reason for Admission/Chief Complaint: Acute Nausea/Vomiting, Other Comment: n/v/d, abd pressure. Medical History - Information : 7 Para: 7 Term: 5 : 2 Abortions: Spontaneous or Elective: 0 Number of Living Children: 6 - Gestational Age Gestational Age by RAMONA (wks/days): 31 Weeks and 0 Days - History Comment: hx of HPV, hsv type 1, BV Review of Systems - Review of Systems Constitutional: No problems Breast: No problems ENT: No problems Cardiovascular: No problems Respiratory: No problems Gastrointestinal: Diarrhea Genitourinary: No problems Musculoskeletal: No problems Neurological: No problems Skin: No problems Vital Signs - Temperature Temperature: 97.9 F Temperature Source: Oral - Pulse Right Brachial Pulse Rate: 110 Pulse Assessment Method: Automatic Cuff - Respirations Respiratory Rate: 18 Oxygen Delivery Method: Room Air - Blood Pressure Right Arm Blood Pressure: 131/70 Blood Pressure Mean: 90 Blood Pressure Source: Automatic Cuff Medical Screen Scoring (Pre) - Cervical Exam Dilation: Exam Deferred Membranes: Intact - Uterine Contractions Frequency: N/A - Maternal Vital Signs Maternal Temperature: N/A Maternal Blood Pressure: N/A Signs of Preeclampsia: N/A Maternal Respirations: N/A - Pain Assessment Pain Location and Character: Abdomen Pain Scale Used: Numeric (1 - 10) Pain Intensity: 7 Pain Description: *Acute Pain Frequency: Intermittent Pain Duration: 30 Pain Duration Units: Minutes Pain Behavior: Anxious, Vocalization Pain Aggravating Factors: Activity Non-Pharmacological Interventions: Darkened Room - Maternal Trauma Maternal Trauma: N/A - Assessment Baseline FHR: 140 Heart Rate - NICHD Category: Category I (Normal) = 0 NST: Reactive Position: N/A Station: N/A - Total Score Total Score (Pre): 0 - Level of Risk Level of Risk: Low (0-5) Physician Notification (Pre) - Physician Notified Physician Notified Date: 09/25/18 Physician Notified Time: 13:20 Physician/Practitioner Notifed:: yes Spoke With: te Holder Order Received: Yes - Notification Comment Comment: cbc, ua, influenza swab Physician Notification (Post) - Physician Notified Physician Notified Date: 09/25/18 Physician Notified Time: 14:50 Physician/Practitioner Notified:: Dr. Ariza Spoke With: Dr. Ariza New Order Received: Yes - Notification Comment Comment: Influenza results and other labs reported. Order received to discharge home. Disposition - Disposition OB Disposition: Discharge to home Discharge Date: 09/25/18 Discharge Time: 14:50 I agree with the RN Medical Screening Exam: Yes Risk & Benefit of care provided described in d/c instruction: Yes Diagnosis: RELATED CONDITIONS, UNSPECIFIED, SECOND TRIMESTER
== END 2018-09-25 15:13 | disposition home or self-care (01) ==
LOC: FBPOP 12:37
PROVIDERS: ATTEND Obstetrics & Gynecology
DX: O26.92 Pregnancy related conditions, unspecified, second trimester (principal); Z3A.31 31 weeks gestation of pregnancy
CPT/HCPCS: 59025; 85025; 81001; 87502; G0463; 99214

== ENCOUNTER 2018-11-17 23:18 | Outpatient (CLI) | payer OTHER ==
[2018-11-18 00:27] VITALS: BP 126/80; PULSE 86; RESP 18; TEMP 98
[2018-11-18 01:04] LABS: Appearance,Urine Clear (Clear); Bilirubin,Urine Negative (Negative); Blood,Urine Moderate (Negative); Color,Urine Light Yellow; Glucose,Urine (UA) Negative (Negative); Ketones,Urine Negative (Negative); Leukocyte Esterase,Urine Large (Negative); Nitrite,Urine Negative (Negative); PH, Urine 6.5 (5.0-8.0); Protein,Urine Negative (Negative); RBC,Urine 2 /hpf (0-5); Specific Gravity,Urine 1.006 (1.001-1.035); Squamous Epithelial Cell,Urine 1 /hpf (0-4); Urobilinogen,Urine <2.0 mg/dL (<2.0); WBC,Urine 8 /hpf (0-5)
[2018-11-18 01:06] LABS: Amphetamine Screen,Urine Not Detected (NotDetected); Barbiturate Screen,Urine Not Detected (NotDetected); Benzodiazepines Screen,Urine Not Detected (NotDetected); Cocaine Screen,Urine Not Detected (NotDetected); Methadone Screen, Urine Not Detected (NotDetected); Opiate Screen,Urine Not Detected (NotDetected); Oxycodone Screen, Urine Not Detected (NotDetected); Phencyclidine Screen,Urine Not Detected (NotDetected); Tricyclic Antidepressant,Urine Not Detected (NotDetected); Urn Cannabinoid Scrn Detected (NotDetected)
--- NOTE | 2018-11-18 06:49 | P.MSEPDOC ---
Presenting Problems - Arrival Data Date of Arrival on Unit: 11/18/18 Time of Arrival on Unit: 23:18 Mode of Transport: EMS - Complaint OB-Reason for Admission/Chief Complaint: Possible Onset of Labor, Vaginal Bleeding Comment: pt arrived by EMS for contractions and spotting Medical History - Information : 10 Para: 5 Term: 6 : 0 Abortions: Spontaneous or Elective: 3 Number of Living Children: 5 - Gestational Age Gestational Age by RAMONA (wks/days): 38 Weeks and 5 Days - History Complications: Prior Review of Systems - Review of Systems Constitutional: No problems Breast: No problems ENT: No problems Cardiovascular: No problems Respiratory: No problems Gastrointestinal: No problems Genitourinary: No problems Musculoskeletal: No problems Neurological: No problems Skin: No problems Vital Signs - Temperature Temperature: 98.0 F Temperature Source: Temporal Artery Scan - Pulse Right Brachial Pulse Rate: 86 Pulse Assessment Method: Automatic Cuff - Respirations Respiratory Rate: 18 Oxygen Delivery Method: Room Air - Blood Pressure Right Arm Blood Pressure: 126/80 Blood Pressure Mean: 95 Blood Pressure Source: Automatic Cuff Medical Screen Scoring (Pre) - Cervical Exam Dilation: 1-3 cm = 1 Effacement: More than 50% = 2 Membranes: Intact - Uterine Contractions Frequency: > 5 minutes apart = 1 Duration: > 40 seconds = 2 Intensity: N/A - Maternal Vital Signs Maternal Temperature: N/A Maternal Blood Pressure: N/A Signs of Preeclampsia: N/A Maternal Respirations: N/A - Pain Assessment Pain Location and Character: Abdomen Pain Scale Used: Numeric (1 - 10) Pain Intensity: 8 Pain Management Goal: 4 Pain Description: *Acute, Cramping, Pressure, Tightness Pain Radiation Location: none Pain Frequency: Intermittent Pain Duration: 8 Pain Duration Units: Hours Pain Behavior: Moving Slowly, Vocalization Pain Aggravating Factors: Contractions - Assessment Baseline FHR: 130 Heart Rate - NICHD Category: Category I (Normal) = 0 Position: N/A Station: N/A - Total Score Total Score (Pre): 6 - Level of Risk Level of Risk: Medium (6-9) Physician Notification (Pre) - Physician Notified Physician Notified Date: 11/17/18 Physician Notified Time: 23:45 Physician/Practitioner Notifed:: Dr. Mantilla Spoke With: Dr. Mantilla New Order Received: Yes - Notification Comment Comment: obtain UDA and UA, recheck cervix in an hour Medical Screen Scoring (Post) - Cervical Exam Dilation: 1-3 cm = 1 Effacement: More than 50% = 2 Membranes: Intact - Uterine Contractions Frequency: > 5 minutes apart = 1 Duration: N/A Intensity: N/A - Maternal Vital Signs Maternal Temperature: N/A Signs of Preeclampsia: N/A Maternal Respirations: N/A - Pain Assessment Pain Location and Character: Abdomen Pain Scale Used: Numeric (1 - 10) Pain Intensity: 8 Pain Description: *Acute, Cramping, Pressure, Tightness Pain Radiation Location: none Pain Frequency: Intermittent Pain Duration: 8 Pain Duration Units: Hours Pain Aggravating Factors: Contractions - Maternal Trauma Maternal Trauma: N/A - Assessment Heart Rate: 130 Heart Rate - NICHD Category: Category I (Normal) = 0 NST: Reactive Position: N/A Station: N/A - Total Score Total Score (Post): 4 - Post Treatment Level of Risk Post Treatment Level of Risk: Low (0-5) Physician Notification (Post) - Physician Notified Physician Notified Date: 11/18/18 Physician Notified Time: 00:55 Physician/Practitioner Notified:: Dr. Mantilla Spoke With: Dr. Mantilla New Order Received: Yes - Notification Comment Comment: discharge pt home, follow up with Dr. Melendez Disposition - Disposition OB Disposition: Triage, Discharge to home, Written follow up instructions reviewed Discharge Date: 11/18/18 Discharge Time: 01:15 I agree with the RN Medical Screening Exam: Yes Risk & Benefit of care provided described in d/c instruction: Yes Diagnosis: FALSE LABOR BEFORE 37 COMPLETED WEEKS OF GEST, THIRD TRI
== END 2018-11-18 01:15 | disposition home or self-care (01) ==
LOC: FBPOP 23:18
PROVIDERS: ATTEND Obstetrics & Gynecology
DX: O47.1 False labor at or after 37 completed weeks of gestation (principal); Z3A.38 38 weeks gestation of pregnancy
CPT/HCPCS: 59025; 81001; 80306; G0463; 99213

== ENCOUNTER 2018-11-18 07:57 | Inpatient (IN) | payer OTHER ==
[2018-11-18] MEDS ORDERED: CARBOPROST TROMETHAMINE 250 MCG/ML 1 ML AMP IM PRN (08:04)
[2018-11-18] MEDS ORDERED: LIDOCAINE 0.5% (PF) 5 MG/ML (50 ML SDV) SQ PRN (08:04)
[2018-11-18] MEDS ORDERED: OXYTOCIN 10 UNIT/ML 1 ML VIAL IM PRN (08:04)
[2018-11-18] MEDS ORDERED: TERBUTALINE 1 MG/ML VIAL SQ PRN (08:04)
[2018-11-18] MEDS ORDERED: METHYLERGONOVINE 0.2 MG/ML 1 ML AMP IM PRN (08:04)
[2018-11-18] MEDS ORDERED: LACTATED RINGERS 1,000 ML IV SCH (08:15)
[2018-11-18 08:45] LABS: Anisocytosis Slight; Basophils % (A) 0 %; Eosinophils # (A) 0.1 k/uL (0-0.7); Eosinophils % (A) 1 %; HCT 35.2 % (34.0-46.0); HGB 11.3 gm/dL (11.4-16.0); Hypochromasia Slight; Lymphocytes # (A) 1.4 k/uL (1.0-4.8); Lymphocytes % (A) 12 %; MCH 27.4 pg (25.0-35.0); MCHC 32.1 g/dL (31.0-37.0); MCV 85.6 fL (80.0-100.0); Mean Platelet Volume 7.7; Monocytes # (A) 0.6 k/uL (0-1.0); Monocytes % (A) 6 %; Neutrophils # (A) 8.8 k/uL (1.3-7.7); Neutrophils % (A) 80 %; Platelet Count 161 k/uL (150-450); Poikilocytosis Slight; RBC 4.11 m/uL (3.80-5.40); RDW 17.5 % (11.5-15.5); WBC 11.1 k/uL (3.8-10.6)
--- NOTE | 2018-11-18 09:17 | P.HPOB ---
History of Present Illness H&P Date: 11/18/18 Chief Complaint: Contractions This is a 27-year-old female 10 para 6 at 38-6/7 weeks who presents with active labor and feeling urge to push. She states she has had care with Dr. Melendez in [facility]. She states she was planning to do a vaginal after section. Her last delivery was a section for twins and she stated she delivered 2 weeks early. We have no records here and patient is not a good historian. She also has no custody of any of her children. One of the twins did shortly after secondary to a hypoplastic left heart. She has had vaginal deliveries with all of her other children besides the for twins. Review of Systems Constitutional: Denies chills, Denies fever Eyes: denies blurred vision, denies pain Ears, nose, mouth and throat: Denies headache, Denies sore throat Cardiovascular: Denies chest pain, Denies shortness of breath Respiratory: Denies cough Gastrointestinal: Reports abdominal pain Genitourinary: Reports pelvic pain, Reports Musculoskeletal: Reports low back pain Integumentary: Denies pruritus, Denies rash Neurological: Denies numbness, Denies weakness Psychiatric: Reports anxiety, Reports depression Past Medical History Past Medical History: Asthma Additional Past Medical History / Comment(s): migraines History of Any Multi-Drug Resistant Organisms: None Reported Past Surgical History: Section Additional Past Surgical History / Comment(s): eye Past Psychological History: Bipolar Smoking Status: Current every day smoker Past Alcohol Use History: None Reported Past Drug Use History: Marijuana (Daily) Medications and Allergies Home Medications Medication Instructions Recorded Confirmed Type Albuterol Inhaler [Ventolin Hfa 1 - 2 puff INHALATION RT-Q6H PRN 09/25/18 11/18/18 History Inhaler] MDD 1-2 puffs Pantoprazole Sodium [Protonix] 40 mg PO DAILY MDD 1 09/25/18 11/18/18 History Djf-Xvpf-Ocopm Acid 1 cap PO DAILY MDD 1 09/25/18 11/18/18 History [-U Capsule (formulary)] Allergies Allergy/AdvReac Type Severity Reaction Status Date / Time bee venom protein (honey bee) Allergy Swelling Verified 11/18/18 08:04 gonzalez Allergy Rash/Hives Verified 11/18/18 08:04 gonzalez flavor Allergy Rash/Hives Verified 11/18/18 08:04 Penicillins Allergy Unknown Verified 11/18/18 08:04 Childhood atomoxetine [From Strattera] AdvReac SUCIDAL Verified 11/18/18 08:04 quetiapine [From Seroquel] AdvReac Unknown Verified 11/18/18 08:04 Exam Osteopathic Statement: *. No significant issues noted on an osteopathic structural exam other than those noted in the History and Physical/Consult. Intake and Output 11/17/18 11/18/18 11/18/18 22:59 06:59 14:59 Other: Weight 97.976 kg HEENT: Within normal limits Heart: Regular rate and rhythm Lungs: Clear to auscultation bilaterally Abdomen: Cervix: 8 cm/90%/-1 station with bulging bag of water. heart tones: Minimal variability with no decelerations. Contractions: Every couple minutes. Extremities: Negative Homans Results Result Diagrams: 11/18/18 08:13 Abnormal Lab Results - Last 24 Hours (Table) 11/18/18 Range/Units 08:13 WBC 11.1 H (3.8-10.6) k/uL Hgb 11.3 L (11.4-16.0) gm/dL RDW 17.5 H (11.5-15.5) % Neutrophils # 8.8 H (1.3-7.7) k/uL Assessment and Plan (1) Term Current Visit: Yes Status: Acute Code(s): Z34.90 - ENCNTR FOR SUPRVSN OF NORMAL , UNSP, UNSP TRIMESTER SNOMED Code(s): 08112405 (2) Vaginal after () Current Visit: Yes Status: Acute Code(s): O34.219 - MATERNAL CARE FOR UNSP TYPE SCAR FROM PREVIOUS DEL SNOMED Code(s): 971946168 Plan: Admission for imminent delivery. Artificial rupture membranes and expectant management. Will obtain all labs. Will obtain social service consult due to positive drug screen for marijuana and history of no custody of her other children.
--- NOTE | 2018-11-18 09:35 | P.PROBDLV ---
Vaginal Delivery Note - . Vaginal Delivery Note: The patient underwent artificial rupture membranes with clear fluid noted. At approximately 9-1/2 cm she felt a strong urge to push and began pushing. Cervix did reduce around the 's head. She pushed admits head to a crown. With one further push, the 's head delivered across the perineum followed by the anterior shoulder. Nose and mouth were bulb suctioned. Nuchal cord 2 was reduced around the infant and then with one remaining push, the remainder the easily delivered and was placed on mother's abdomen. A viable male infant was noted with scores of 8 at 1 minute and 9 at 5 minutes. weight is pending at this time. Placenta delivered shortly thereafter, intact, with a three-vessel cord. Cord blood was obtained secondary to unknown blood type. Uterus did contract fairly well after oxytocin was given and uterine massage was carried out. Inspection of the perineum did reveal a small first- degree laceration that was not actively bleeding. Patient declined stitches. Estimated blood loss is approximately 150 mL's. Both mother and are in stable condition.
[2018-11-18 09:52] VITALS: BMI 39.5
[2018-11-18] MEDS ORDERED: diphenhydrAMINE 50 MG CAP PO PRN (09:58)
[2018-11-18] MEDS ORDERED: diphenhydrAMINE 50 MG/ML 1 ML VIAL IVP PRN ×2 (09:58)
[2018-11-18] MEDS ORDERED: ACETAMINOPHEN TAB 325 MG TAB PO PRN (09:58)
[2018-11-18] MEDS ORDERED: diphenhydrAMINE 25 MG CAP PO PRN (09:58)
[2018-11-18] MEDS ORDERED: OXYTOCIN 20 UNITS/1000 ML NS 1,000 ML IV SCH (09:58)
[2018-11-18] MEDS ORDERED: HYDROCORTISONE 2.5% RECTAL CREAM 30 GM TUBE RECTAL PRN (09:58)
[2018-11-18] MEDS ORDERED: BENZOCAINE/MENTHOL SPRAY 1 GM/SPRAY AEROSOL TOPICAL PRN (09:58)
[2018-11-18] MEDS ORDERED: LANOLIN CREAM 5 GM TUBE TOPICAL PRN (09:58)
[2018-11-18] MEDS ORDERED: ZOLPIDEM 5 MG TAB PO PRN (09:58)
[2018-11-18] MEDS ORDERED: ALBUTEROL NEBULIZED 2.5 MG/3 ML INHALATION PRN (09:58)
[2018-11-18] MEDS ORDERED: WITCH HAZEL 1 EACH MED..PAD TOPICAL PRN (09:58)
[2018-11-18] MEDS ORDERED: SIMETHICONE 80 MG CHEWABLE PO PRN (09:58)
[2018-11-18] MEDS ORDERED: CLINDAMYCIN 900 MG in DEXTROSE 5% IN WATER 50 ML IVPB SCH ×2 (16:00)
[2018-11-18] MEDS: SENNOSIDES-DOCUSATE SODIUM 1 EACH TAB PO SCH (19:49)
[2018-11-18] MEDS: IBUPROFEN 600 MG TAB PO PRN (19:49)
--- NOTE | 2018-11-18 20:18 | P.MSEPDOC ---
Presenting Problems - Arrival Data Date of Arrival on Unit: 11/18/18 Time of Arrival on Unit: 08:18 Medical History - Information : 10 Para: 6 Term: 5 : 2 Abortions: Spontaneous or Elective: 3 Number of Living Children: 5 - Gestational Age Gestational Age by RAMONA (wks/days): 38 Weeks and 5 Days Vital Signs - Temperature Temperature: 98.4 F Temperature Source: Oral - Pulse Right Brachial Pulse Rate: 80 Pulse Assessment Method: Automatic Cuff - Respirations Respiratory Rate: 17 Oxygen Delivery Method: Room Air - Blood Pressure Right Arm Blood Pressure: 131/80 Blood Pressure Mean: 97 Blood Pressure Source: Automatic Cuff Disposition - Disposition OB Disposition: Admit I agree with the RN Medical Screening Exam: Yes Risk & Benefit of care provided described in d/c instruction: Yes Diagnosis: MATERN CARE FOR LOW TRANSVERSE SCAR FROM PREV DEL
--- NOTE | 2018-11-19 05:19 | P.PNOBGVD ---
Subjective - Subjective Principal diagnosis: Status post vaginal delivery day #1 Interval history: Patient is doing okay. She still complains of some lower abdominal cramps and pain. Lochia is decreasing. She is planning on breast-feeding but hasn't started yet. Patient reports: Reports appetite normal, Reports voiding normally, Reports pain well controlled, Reports ambulating normally [place]: other (In level I nursery) Objective - Latest Vital Signs Latest vital signs: Vital Signs Temp Pulse Resp BP Pulse Ox 11/19/18 00:00 98.7 F 89 18 123/75 100 11/18/18 20:17 98.4 F 80 17 131/80 11/18/18 20:00 98.7 F 89 18 123/75 100 11/18/18 16:00 98.4 F 80 17 131/80 11/18/18 11:13 73 16 134/76 11/18/18 10:44 77 16 135/82 11/18/18 10:13 81 16 133/90 11/18/18 09:58 98.3 F 80 17 125/70 11/18/18 09:43 81 17 131/75 11/18/18 09:28 80 16 135/79 11/18/18 09:13 98.3 F 85 16 135/75 Intake and Output 11/18/18 11/18/18 11/19/18 14:59 22:59 06:59 Other: # Voids 1 Weight 97.976 kg - Exam Extremities: Present: normal. Absent: tenderness Abdomen: Present: normal appearance, soft. Absent: distention, tenderness Uterus: Present: normal, firm. Absent: tenderness - Labs Labs: Abnormal Lab Results - Last 24 Hours (Table) 11/18/18 Range/Units 08:13 WBC 11.1 H (3.8-10.6) k/uL Hgb 11.3 L (11.4-16.0) gm/dL RDW 17.5 H (11.5-15.5) % Neutrophils # 8.8 H (1.3-7.7) k/uL Assessment and Plan Assessment: Status post vaginal delivery after day #1 (1) Term Current Visit: Yes Status: Acute Code(s): Z34.90 - ENCNTR FOR SUPRVSN OF NORMAL , UNSP, UNSP TRIMESTER SNOMED Code(s): 51193804 (2) Vaginal after () Current Visit: Yes Status: Acute Code(s): O34.219 - MATERNAL CARE FOR UNSP TYPE SCAR FROM PREVIOUS DEL SNOMED Code(s): 442005073 Plan: Continue with care. Anticipate discharge home tomorrow.
[2018-11-19 07:51] LABS: Anisocytosis Slight; Basophils % (A) 0 %; Eosinophils # (A) 0.1 k/uL (0-0.7); Eosinophils % (A) 1 %; HCT 30.3 % (34.0-46.0); Hypochromasia Slight; Lymphocytes # (A) 1.6 k/uL (1.0-4.8); Lymphocytes % (A) 20 %; MCH 27.9 pg (25.0-35.0); MCHC 32.2 g/dL (31.0-37.0); MCV 86.6 fL (80.0-100.0); Mean Platelet Volume 8.1; Monocytes # (A) 0.5 k/uL (0-1.0); Monocytes % (A) 6 %; Neutrophils # (A) 5.5 k/uL (1.3-7.7); Neutrophils % (A) 70 %; Platelet Count 131 k/uL (150-450); Poikilocytosis Slight; RDW 17.6 % (11.5-15.5); WBC 7.9 k/uL (3.8-10.6)
[2018-11-19 08:02] LABS: HGB 9.8 gm/dL (11.4-16.0)
[2018-11-19] MEDS: SENNOSIDES-DOCUSATE SODIUM 1 EACH TAB PO SCH ×2 (08:19→21:37)
[2018-11-19] MEDS: PANTOPRAZOLE 40 MG TABLET PO SCH (08:20)
[2018-11-19] MEDS: IBUPROFEN 600 MG TAB PO PRN (21:05)
--- NOTE | 2018-11-20 08:08 | P.DS ---
Providers Date of admission: 11/18/18 07:57 Expected date of discharge: 11/20/18 Attending physician: Glenny Mantilla Primary care physician: Stated None - Discharge Diagnosis(es) (1) Term Current Visit: Yes Status: Acute (2) Vaginal after () Current Visit: Yes Status: Acute Hospital Course: This is a 27-year-old female 10 para 6 at 38-6/7 weeks who presented in active labor on 11/18/2018. She delivered a viable male with scores of 8 at 1 minute and 9 at 5 minutes and weight of 8 lbs. 4 oz. and nuchal cord 2 on 11/18/2018 via vaginal after . Her course has been uncomplicated. Lochia is decreasing. Pain is well-controlled. Vital signs are stable. Abdomen is soft with fundus firm and nontender. Extremities show negative Homans. Impression is status post vaginal delivery day #2. Plan is to discharge home today. She will be given a prescription for ibuprofen. She is advised to follow-up with Dr. Jara who is her family services worker at [facility] in 6 weeks. Routine instructions are given. She is advised to call Dr. Jara's office if she has any further questions or concerns prior to her visit. Procedures: Vaginal after of a viable male on 11/18/2018 Patient Condition at Discharge: Stable Plan - Discharge Summary New Discharge Prescriptions: New Ibuprofen [Motrin] 600 mg PO Q6HR PRN #30 tab PRN Reason: Mild Pain Or Fever >= 100.5 Continue Lcw-Wjur-Gqlxb Acid [-U Capsule (formulary)] 1 cap PO DAILY MDD 1 No Action Pantoprazole Sodium [Protonix] 40 mg PO DAILY MDD 1 Albuterol Inhaler [Ventolin Hfa Inhaler] 1 - 2 puff INHALATION RT-Q6H PRN MDD 1-2 puffs PRN Reason: tid Discharge Medication List Albuterol Inhaler [Ventolin Hfa Inhaler] 1 - 2 puff INHALATION RT-Q6H PRN MDD 1- 2 puffs 09/25/18 [History] Pantoprazole Sodium [Protonix] 40 mg PO DAILY MDD 1 09/25/18 [History] Fod-Anah-Jozck Acid [-U Capsule (formulary)] 1 cap PO DAILY MDD 1 09/25/18 [History] Ibuprofen [Motrin] 600 mg PO Q6HR PRN #30 tab 11/20/18 [Rx] Follow up Appointment(s)/Referral(s): Shea Jara MD [REFERRING] - 6 Weeks Activity/Diet/Wound Care/Special Instructions: Instructions 1. Do not begin any exercise program for 3 weeks. 2. Do not resume sexual relations for 3 weeks or longer if uncomfortable. 3. You may take tub baths or showers at any time. 4. You may use tampons if desired after 3 weeks. 5. Keep the area of episiotomy (stitches) clean and dry. 6. If you are not nursing, wear a good fitting, supportive bra during the day and limit fluid intake for at least 1 week to prevent breast engorgement. 7. Call the office, [phone], within the next week to make appointment for your 6 week checkup if it has not already been made. 8. Report any of the following occurrences to the doctor promptly: a. Heavy, excessive bleeding b. Chills, fever c. Burning or frequency of urination d. Pain or redness and breasts if nursing e. Increasing pain or swelling in episiotomy (stitches). In addition to the above instructions, the following additional should be followed: 1. No heavy lifting or straining (exercising) until after 6 week checkup. 2. Keep abdominal incision clean and dry: You may wear a dressing if more comfortable. 3. Make office appointment for 10 days after going home or as instructed by her doctor. Discharge Disposition: HOME SELF-CARE
[2018-11-20] MEDS: IBUPROFEN 600 MG TAB PO PRN (08:20)
[2018-11-20 09:31] VITALS: RESP 18
[2018-11-20] MEDS: SENNOSIDES-DOCUSATE SODIUM 1 EACH TAB PO SCH (09:57)
[2018-11-20] MEDS: PANTOPRAZOLE 40 MG TABLET PO SCH (12:01)
[2018-11-20 12:35] LABS: HIV 1 AB Non-Reactive (Non-Reactive); HIV AB P24 Non-Reactive (Non-Reactive); HIV P24 AG Non-Reactive (Non-Reactive)
[2018-11-20 18:51] VITALS: BP 104/56; PULSE 88; TEMP 98.3
== END 2018-11-20 17:00 | disposition home or self-care (01) | DRG 807 ==
LOC: 4FBP 07:57
PROVIDERS: ADMIT Obstetrics & Gynecology; ATTEND Obstetrics & Gynecology
PROC: 10E0XZZ Delivery of Products of Conception, External Approach (ICD-10-PCS; principal; 2018-11-18)
DX: O34.211 Maternal care for low transverse scar from previous cesarean delivery (principal); Z37.0 Single live birth; O69.81X0 Labor and delivery complicated by cord around neck, without compression, not applicable or unspecified; O70.0 First degree perineal laceration during delivery; N85.8 Other specified noninflammatory disorders of uterus; Z3A.38 38 weeks gestation of pregnancy; O99.334 Smoking (tobacco) complicating childbirth; F17.200 Nicotine dependence, unspecified, uncomplicated; O99.52 Diseases of the respiratory system complicating childbirth; J45.909 Unspecified asthma, uncomplicated; G43.909 Migraine, unspecified, not intractable, without status migrainosus; Z79.899 Other long term (current) drug therapy; Z88.0 Allergy status to penicillin; Z88.8 Allergy status to other drugs, medicaments and biological substances; Z91.030 Bee allergy status; Z91.02 Food additives allergy status
CPT/HCPCS: 82947; 85025; 86762; 86780; 86850; 86900; 86901; 87340; 87390; 88307

== ENCOUNTER 2019-01-27 01:08 | Emergency (ER) | payer OTHER ==
[2019-01-27 01:35] VITALS: BP 139/83; PULSE 73; RESP 19; TEMP 98
--- NOTE | 2019-01-27 02:47 | ED ---
General Adult HPI - General Chief complaint: Skin/Abscess/Foreign Body Stated complaint: Bug Bites from home (poss bed bugs) Time Seen by Provider: 01/27/19 01:55 Source: patient Mode of arrival: ambulatory Limitations: no limitations - History of Present Illness Initial comments: Patient is a 28-year-old female presents emergency Department for headache and bug bites. Patient reports maxillary or frontal sinus tenderness for approximately 2 weeks. Patient reports her face is full with pressure that is exacerbated when bending forward. Patient also reports bilateral otalgia. Patient reports a frequent history of sinus infection. Patient is a smoker. Patient denies fever, nausea, vomiting, diarrhea. Patient also reports bug bites due to exposure to bedbugs. Patient reports itching that is worse especially in the evening. - Related Data Home Medications Medication Instructions Recorded Confirmed Albuterol Inhaler [Ventolin Hfa 1 - 2 puff INHALATION RT-Q6H PRN 09/25/18 11/18/18 Inhaler] MDD 1-2 puffs Pantoprazole Sodium [Protonix] 40 mg PO DAILY MDD 1 09/25/18 11/18/18 Rpg-Gzbj-Xzxwl Acid 1 cap PO DAILY MDD 1 09/25/18 11/18/18 [-U Capsule (formulary)] Previous Rx's Medication Instructions Recorded Ibuprofen [Motrin] 600 mg PO Q6HR PRN #30 tab 11/20/18 Doxycycline Monohydrate [Monodox] 100 mg PO Q12HR #20 cap 01/27/19 Hydrocortisone Cream 1 applic TOPICAL TID #1 bottle 01/27/19 [Hydrocortisone 1% Cream] Allergies Allergy/AdvReac Type Severity Reaction Status Date / Time bee venom protein (honey bee) Allergy Swelling Verified 11/18/18 08:04 gonzalez Allergy Rash/Hives Verified 11/18/18 08:04 gonzalez flavor Allergy Rash/Hives Verified 11/18/18 08:04 Penicillins Allergy Unknown Verified 11/18/18 08:04 Childhood atomoxetine [From Strattera] AdvReac SUCIDAL Verified 11/18/18 08:04 quetiapine [From Seroquel] AdvReac Unknown Verified 11/18/18 08:04 Review of Systems ROS Statement: Those systems with pertinent positive or pertinent negative responses have been documented in the HPI. ROS Other: All systems not noted in ROS Statement are negative. Past Medical History Past Medical History: Asthma Additional Past Medical History / Comment(s): migraines History of Any Multi-Drug Resistant Organisms: None Reported Past Surgical History: Section Additional Past Surgical History / Comment(s): eye Past Anesthesia/Blood Transfusion Reactions: No Reported Reaction Past Psychological History: Anxiety, Bipolar, Depression, PTSD Smoking Status: Current every day smoker Past Alcohol Use History: Occasional Past Drug Use History: Marijuana - Past Family History Mother Family Medical History: COPD General Exam Limitations: no limitations General appearance: alert, in no apparent distress Head exam: Present: atraumatic, normocephalic, normal inspection Eye exam: Present: normal appearance, PERRL, EOMI Pupils: Present: normal accommodation ENT exam: Present: normal exam, normal oropharynx, mucous membranes moist, TM's normal bilaterally, normal external ear exam, other (Maxillary and frontal sinus tenderness) Neck exam: Present: normal inspection, full ROM. Absent: tenderness, lymphadenopathy Respiratory exam: Present: normal lung sounds bilaterally Cardiovascular Exam: Present: regular rate, normal rhythm, normal heart sounds Extremities exam: Present: normal inspection, full ROM Back exam: Present: normal inspection, full ROM Neurological exam: Present: alert, oriented X3 Psychiatric exam: Present: normal affect, normal mood Skin exam: Present: warm, intact, normal color, rash (Single sporadic lesions on bilateral upper and lower extremities as well as trunk.) Course Vital Signs 01/27/19 01:32 Temperature 98.0 F Pulse Rate 73 Respiratory 19 Rate Blood Pressure 139/83 O2 Sat by Pulse 100 Oximetry Medical Decision Making - Medical Decision Making Patient is a 28-year-old female presenting to emergency Department with sinus pressure and rash. Patient was given hydrocortisone cream to cover for possible bed bug bites. Patient will be given a 10 day course of doxycycline to treat the sinus infection because she is ALLERGIC to amoxicillin.. Patient advised to follow-up with primary care.I counseled the patient for smoking cessation for greater than 3 minutes. Patient advised to wash all clothes suspected of bug bites. Strict return parameters were thoroughly discussed with patient was understanding and agreeable. Case discussed with physician. Disposition Clinical Impression: Sinusitis Disposition: HOME SELF-CARE Condition: Stable Instructions (If sedation given, give patient instructions): Sinusitis (ED) Additional Instructions: Please take prescribed medication as directed. Please follow up with primary care. Please return to emergency department if symptoms worsen. Prescriptions: Hydrocortisone Cream [Hydrocortisone 1% Cream] 1 applic TOPICAL TID #1 bottle Doxycycline Monohydrate [Monodox] 100 mg PO Q12HR #20 cap Is patient prescribed a controlled substance at d/c from ED?: No Referrals: Farzana Beasley MD [Primary Care Provider] - 1-2 days Time of Disposition: 02:47
== END 2019-01-27 02:50 | disposition home or self-care (01) ==
LOC: EC 01:08
DX: J32.9 Chronic sinusitis, unspecified (principal); J45.909 Unspecified asthma, uncomplicated; F17.200 Nicotine dependence, unspecified, uncomplicated; Z79.899 Other long term (current) drug therapy; Z88.0 Allergy status to penicillin; Z88.8 Allergy status to other drugs, medicaments and biological substances; Z91.030 Bee allergy status; Z91.018 Allergy to other foods
CPT/HCPCS: 99283

== ENCOUNTER 2019-04-07 19:08 | Emergency (ER) | payer OTHER ==
--- NOTE | 2019-04-07 19:37 | ED ---
General Adult HPI - General Source: patient Mode of arrival: EMS Limitations: no limitations <MinamelissanitishOswald reyes - Last Filed: 04/07/19 20:58> <Juan Clifford - Last Filed: 04/07/19 21:49> - General Chief complaint: Psychiatric Symptoms Stated complaint: Suicidal Ideation Time Seen by Provider: 04/07/19 19:24 - History of Present Illness Initial comments: Patient presents to the ED by ambulance for evaluation. Patient states that her fianc broke off their engagement today, and she states that she has become suic idal today. Patient states that she has had thoughts of overdosing on her Zoloft, however she denies suicidal or self-harm attempt. She states that she uses marijuana, and she last used marijuana 4 days ago. Patient denies any other illicit drug use. Patient denies medication abuse or overdose, alcohol abuse, hallucinations, homicidal ideations, seizures, trauma or injury, any pain, fever or chills, dyspnea, dizziness, nausea or vomiting, or any other symptoms or complaints. (Oswald Benitez) - Related Data Home Medications Medication Instructions Recorded Confirmed Scot 1.5/30mcg 1 tab PO DAILY 04/07/19 04/07/19 Sertraline [Zoloft] 50 mg PO DAILY 04/07/19 04/07/19 diphenhydrAMINE HCL [Benadryl] 50 mg PO HS PRN 04/07/19 04/07/19 Previous Rx's Medication Instructions Recorded Ibuprofen [Motrin] 600 mg PO Q6HR PRN #30 tab 11/20/18 Allergies Allergy/AdvReac Type Severity Reaction Status Date / Time bee venom protein (honey bee) Allergy Swelling Verified 04/07/19 19:46 gonzalez Allergy Rash/Hives Verified 04/07/19 19:46 gonzalez flavor Allergy Rash/Hives Verified 04/07/19 19:46 Penicillins Allergy Unknown Verified 04/07/19 19:46 Childhood atomoxetine [From Strattera] AdvReac SUCIDAL Verified 04/07/19 19:46 quetiapine [From Seroquel] AdvReac Unknown Verified 04/07/19 19:46 Review of Systems ROS Other: All systems not noted in ROS Statement are negative. <Oswald Benitez - Last Filed: 04/07/19 20:58> ROS Other: All systems not noted in ROS Statement are negative. <Juan Clifford - Last Filed: 04/07/19 21:49> ROS Statement: Those systems with pertinent positive or pertinent negative responses have been documented in the HPI. Past Medical History Past Medical History: Asthma Additional Past Medical History / Comment(s): migraines History of Any Multi-Drug Resistant Organisms: None Reported Past Surgical History: Section Additional Past Surgical History / Comment(s): eye Past Anesthesia/Blood Transfusion Reactions: No Reported Reaction Past Psychological History: Anxiety, Bipolar, Depression, PTSD Smoking Status: Current every day smoker Past Alcohol Use History: Occasional Past Drug Use History: Marijuana - Past Family History Mother Family Medical History: COPD <Oswald Benitez - Last Filed: 04/07/19 20:58> General Exam Limitations: no limitations General appearance: alert, in no apparent distress Head exam: Present: atraumatic, normocephalic Eye exam: Present: normal appearance, PERRL, EOMI ENT exam: Present: mucous membranes moist Respiratory exam: Present: normal lung sounds bilaterally. Absent: respiratory distress, wheezes, rales, rhonchi Cardiovascular Exam: Present: regular rate, normal rhythm, normal heart sounds, other (Normal radial pulses bilaterally) GI/Abdominal exam: Present: soft. Absent: distended, tenderness Extremities exam: Absent: tenderness, pedal edema, calf tenderness Neurological exam: Present: alert, oriented X3 Psychiatric exam: Present: depressed, anxious Skin exam: Present: warm, dry, intact, normal color <Oswald Benitez - Last Filed: 04/07/19 20:58> Course <Oswald Benitez - Last Filed: 04/07/19 20:58> Vital Signs 04/07/19 19:19 Temperature 98.4 F Pulse Rate 75 Respiratory 20 Rate Blood Pressure 123/74 O2 Sat by Pulse 97 Oximetry - Reevaluation(s) Reevaluation #1: 04/07/19 20:59 Patient has been alert, cooperative and stable while in the ED. Patient has been medically cleared. Patient is awaiting EPS nurse evaluation for placement. Patient has been endorsed to Dr. Clifford (secondary to shift change) for final disposition. (Oswald Benitez) Medical Decision Making <Juan Clifford - Last Filed: 04/07/19 21:49> - Medical Decision Making Patient has been seen by behavioral health and now is esteban for safety. The patient has a safety plan and states she will return to the emergency department if there is any change or she's not able to follow safety plan. (Juan Clifford) - Lab Data Lab Results 04/07/19 04/07/19 Range/Units 19:00 19:00 Urine HCG, Qual Not Detected (Not Detectd) Urine Opiates Screen Not Detected (NotDetected) Ur Oxycodone Screen Not Detected (NotDetected) Urine Methadone Screen Not Detected (NotDetected) Ur Propoxyphene Screen Not Detected (NotDetected) Ur Barbiturates Screen Not Detected (NotDetected) U Tricyclic Antidepress Not Detected (NotDetected) Ur Phencyclidine Scrn Not Detected (NotDetected) Ur Amphetamines Screen Not Detected (NotDetected) U Methamphetamines Scrn Not Detected (NotDetected) U Benzodiazepines Scrn Not Detected (NotDetected) Urine Cocaine Screen Not Detected (NotDetected) U Marijuana (THC) Screen Detected H (NotDetected) Disposition <Oswald Benitez - Last Filed: 04/07/19 20:58> Is patient prescribed a controlled substance at d/c from ED?: No <Juan Clifford - Last Filed: 04/07/19 21:49> Clinical Impression: Mood disorder Disposition: HOME SELF-CARE Condition: Stable Instructions (If sedation given, give patient instructions): Mood Disorders (ED), Suicide Prevention (ED) Referrals: Farzana Beasley MD [Primary Care Provider] - 1-2 days
[2019-04-07 20:04] LABS: Amphetamine Screen,Urine Not Detected (NotDetected); Barbiturate Screen,Urine Not Detected (NotDetected); Benzodiazepines Screen,Urine Not Detected (NotDetected); Cocaine Screen,Urine Not Detected (NotDetected); Methadone Screen, Urine Not Detected (NotDetected); Opiate Screen,Urine Not Detected (NotDetected); Oxycodone Screen, Urine Not Detected (NotDetected); Phencyclidine Screen,Urine Not Detected (NotDetected); Tricyclic Antidepressant,Urine Not Detected (NotDetected); Urn Cannabinoid Scrn Detected (NotDetected)
[2019-04-07 21:56] VITALS: BP 118/68; PULSE 72; RESP 16; TEMP 97.8
== END 2019-04-07 21:56 | disposition home or self-care (01) ==
LOC: EC 19:08
DX: F32.9 Major depressive disorder, single episode, unspecified (principal); F41.9 Anxiety disorder, unspecified; F43.10 Post-traumatic stress disorder, unspecified; F17.200 Nicotine dependence, unspecified, uncomplicated; Z79.3 Long term (current) use of hormonal contraceptives; Z79.899 Other long term (current) drug therapy; Z91.048 Other nonmedicinal substance allergy status; Z91.018 Allergy to other foods; Z88.0 Allergy status to penicillin; Z88.8 Allergy status to other drugs, medicaments and biological substances
CPT/HCPCS: 80306; 81025; 82075; 99285

== ENCOUNTER 2019-09-05 12:58 | Emergency (ER) | payer OTHER ==
[2019-09-05 13:08] VITALS: TEMP 98.1
[2019-09-05] MEDS ORDERED: SODIUM CHLORIDE 0.9% 2,000 ML IV STA (13:22)
[2019-09-05] MEDS ORDERED: METOCLOPRAMIDE 5 MG/ML 2 ML VIAL IVP STA (13:22)
[2019-09-05] MEDS ORDERED: diphenhydrAMINE 50 MG/ML 1 ML VIAL IVP STA (13:22)
[2019-09-05 13:49] LABS: Basophils % (A) 0 %; Eosinophils # (A) 0.1 k/uL (0-0.7); Eosinophils % (A) 2 %; HCT 36.9 % (34.0-46.0); HGB 12.3 gm/dL (11.4-16.0); Lymphocytes % (A) 16 %; MCH 28.6 pg (25.0-35.0); MCHC 33.4 g/dL (31.0-37.0); MCV 85.6 fL (80.0-100.0); Mean Platelet Volume 7.4; Monocytes # (A) 0.3 k/uL (0-1.0); Monocytes % (A) 5 %; Neutrophils # (A) 4.6 k/uL (1.3-7.7); Neutrophils % (A) 75 %; Platelet Count 166 k/uL (150-450); RBC 4.32 m/uL (3.80-5.40); WBC 6.1 k/uL (3.8-10.6)
[2019-09-05 13:58] LABS: ALT 10 U/L (4-34); AST 18 U/L (14-36); African American GFR (CKD) >90 (>60 ml/min/1.73 sqM); Alkaline Phosphatase 75 U/L (38-126); Anion Gap 10 mmol/L; Blood Urea Nitrogen 7 mg/dL (7-17); Calcium 8.3 mg/dL (8.4-10.2); Carbon Dioxide 21 mmol/L (22-30); Chloride 104 mmol/L (98-107); Glucose 80 mg/dL (74-99); Non-African American GFR(CKD) >90 (>60 ml/min/1.73 sqM); Potassium 3.5 mmol/L (3.5-5.1); Sodium 135 mmol/L (137-145); Total Bilirubin 0.6 mg/dL (0.2-1.3); Total Protein 6.9 g/dL (6.3-8.2)
[2019-09-05 15:10] VITALS: BP 114/64; PULSE 69; RESP 18
--- NOTE | 2019-09-05 15:11 | ED ---
Nausea/Vomiting/Diarrhea HPI - General Chief complaint: Nausea/Vomiting/Diarrhea Stated complaint: 16 wks w twins/vomiting Time Seen by Provider: 09/05/19 13:14 Source: patient, RN notes reviewed Mode of arrival: ambulatory Limitations: no limitations - History of Present Illness Initial comments: 28-year-old female presents emergency Department chief complaint of nausea vomiting. Patient states she's been getting sick last 24 hours. Patient called her SYSTEM MANAGER who recommended to emergency department for hydration. Patient states that she has been vomiting so much that her face is red. Patient denies any fevers or chills. Patient denies any dysuria hematuria. Patient is currently 16 weeks with twins SYSTEM MANAGER is Dr. Jara. Denies any vaginal bleeding or vaginal discharge. - Related Data Home Medications Medication Instructions Recorded Confirmed Scot 1.5/30mcg 1 tab PO DAILY 04/07/19 04/07/19 Sertraline [Zoloft] 50 mg PO DAILY 04/07/19 04/07/19 diphenhydrAMINE HCL [Benadryl] 50 mg PO HS PRN 04/07/19 04/07/19 Previous Rx's Medication Instructions Recorded Ibuprofen [Motrin] 600 mg PO Q6HR PRN #30 tab 11/20/18 Cephalexin [Keflex] 500 mg PO Q8HR #21 cap 09/05/19 Allergies Allergy/AdvReac Type Severity Reaction Status Date / Time bee venom protein (honey bee) Allergy Swelling Verified 09/05/19 13:08 gonzalez Allergy Rash/Hives Verified 09/05/19 13:08 gonzalez flavor Allergy Rash/Hives Verified 09/05/19 13:08 Penicillins Allergy Unknown Verified 09/05/19 13:08 Childhood atomoxetine [From Strattera] AdvReac SUCIDAL Verified 09/05/19 13:08 quetiapine [From Seroquel] AdvReac Unknown Verified 09/05/19 13:08 Review of Systems ROS Statement: Those systems with pertinent positive or pertinent negative responses have been documented in the HPI. ROS Other: All systems not noted in ROS Statement are negative. Past Medical History Past Medical History: Asthma Additional Past Medical History / Comment(s): migraines History of Any Multi-Drug Resistant Organisms: None Reported Past Surgical History: Section Additional Past Surgical History / Comment(s): eye Past Anesthesia/Blood Transfusion Reactions: No Reported Reaction Past Psychological History: Anxiety, Bipolar, Depression, PTSD Smoking Status: Former smoker Past Alcohol Use History: Occasional Past Drug Use History: Marijuana - Past Family History Mother Family Medical History: COPD General Exam Limitations: no limitations General appearance: alert, in no apparent distress Head exam: Present: atraumatic, normocephalic, normal inspection Eye exam: Present: normal appearance, PERRL, EOMI. Absent: scleral icterus, conjunctival injection, periorbital swelling ENT exam: Present: normal exam, normal oropharynx, mucous membranes moist Neck exam: Present: normal inspection. Absent: tenderness, meningismus, lymphadenopathy Respiratory exam: Present: normal lung sounds bilaterally. Absent: respiratory distress, wheezes, rales, rhonchi, stridor Cardiovascular Exam: Present: normal rhythm, tachycardia, normal heart sounds. Absent: systolic murmur, diastolic murmur, rubs, gallop, clicks GI/Abdominal exam: Present: soft, normal bowel sounds. Absent: distended, tenderness, guarding, rebound, rigid Course Vital Signs 09/05/19 09/05/19 09/05/19 13:02 13:49 15:09 Temperature 98.1 F Pulse Rate 106 H 86 69 Respiratory 20 16 18 Rate Blood Pressure 118/79 122/74 114/64 O2 Sat by Pulse 99 98 100 Oximetry Medical Decision Making - Medical Decision Making -year-old female . Patient will 100, feels improved after parenteral regular. Patient has evidence of urinary tract infection. Patient be started on Keflex was given Rocephin emergency department. Patient is appointment with SYSTEM MANAGER tomorrow return parameters were discussed. - Lab Data Result diagrams: 09/05/19 13:28 09/05/19 13:28 Lab Results 09/05/19 09/05/19 09/05/19 Range/Units 13:28 13:28 15:04 WBC 6.1 (3.8-10.6) k/uL RBC 4.32 (3.80-5.40) m/uL Hgb 12.3 (11.4-16.0) gm/dL Hct 36.9 (34.0-46.0) % MCV 85.6 (80.0-100.0) fL MCH 28.6 (25.0-35.0) pg MCHC 33.4 (31.0-37.0) g/dL RDW 15.0 (11.5-15.5) % Plt Count 166 (150-450) k/uL Neutrophils % 75 % Lymphocytes % 16 % Monocytes % 5 % Eosinophils % 2 % Basophils % 0 % Neutrophils # 4.6 (1.3-7.7) k/uL Lymphocytes # 1.0 (1.0-4.8) k/uL Monocytes # 0.3 (0-1.0) k/uL Eosinophils # 0.1 (0-0.7) k/uL Basophils # 0.0 (0-0.2) k/uL Sodium 135 L (137-145) mmol/L Potassium 3.5 (3.5-5.1) mmol/L Chloride 104 (98-107) mmol/L Carbon Dioxide 21 L (22-30) mmol/L Anion Gap 10 mmol/L BUN 7 (7-17) mg/dL Creatinine 0.64 (0.52-1.04) mg/dL Est GFR (CKD-EPI)AfAm >90 (>60 ml/min/1.73 sqM) Est GFR (CKD-EPI)NonAf >90 (>60 ml/min/1.73 sqM) Glucose 80 (74-99) mg/dL Calcium 8.3 L (8.4-10.2) mg/dL Total Bilirubin 0.6 (0.2-1.3) mg/dL AST 18 (14-36) U/L ALT 10 (4-34) U/L Alkaline Phosphatase 75 (38-126) U/L Total Protein 6.9 (6.3-8.2) g/dL Albumin 4.0 (3.5-5.0) g/dL Lipase 54 (23-300) U/L Urine Color Yellow Urine Appearance Clear (Clear) Urine pH 7.0 (5.0-8.0) Ur Specific [place] 1.009 (1.001-1.035) Urine Protein Negative (Negative) Urine Glucose (UA) Negative (Negative) Urine Ketones 1+ H (Negative) Urine Blood Negative (Negative) Urine Nitrite Negative (Negative) Urine Bilirubin Negative (Negative) Urine Urobilinogen 2.0 (<2.0) mg/dL Ur Leukocyte Esterase Moderate H (Negative) Urine RBC 2 (0-5) /hpf Urine WBC 11 H (0-5) /hpf Ur Squamous Epith Cells 3 (0-4) /hpf Urine Bacteria Rare H (None) /hpf Disposition Clinical Impression: Nausea/vomiting in , UTI in Disposition: HOME SELF-CARE Condition: Stable Instructions (If sedation given, give patient instructions): Acute Nausea and Vomiting (ED) Additional Instructions: Please return to the Emergency Department if symptoms worsen or any other concerns. Prescriptions: Cephalexin [Keflex] 500 mg PO Q8HR #21 cap Is patient prescribed a controlled substance at d/c from ED?: No Referrals: Farzana Beasley MD [Primary Care Provider] - 1-2 days Time of Disposition: 15:34
[2019-09-05 15:17] LABS: Appearance,Urine Clear (Clear); Bacteria,Urine Rare /hpf; Bilirubin,Urine Negative (Negative); Blood,Urine Negative (Negative); Color,Urine Yellow; Glucose,Urine (UA) Negative (Negative); Ketones,Urine 1+ (Negative); Leukocyte Esterase,Urine Moderate (Negative); Nitrite,Urine Negative (Negative); Protein,Urine Negative (Negative); RBC,Urine 2 /hpf (0-5); Specific Gravity,Urine 1.009 (1.001-1.035); Squamous Epithelial Cell,Urine 3 /hpf (0-4); WBC,Urine 11 /hpf (0-5)
[2019-09-05] MEDS ORDERED: cefTRIAXone IN SWFI 1,000 MG/10 ML SYRINGE IVP STA (15:32)
[2019-09-05] MEDS ORDERED: ONDANSETRON 4 MG ODT STARTER PACK 2 TAB BTL PO STA (15:33)
== END 2019-09-05 15:51 | disposition home or self-care (01) ==
LOC: EC 12:58
DX: O23.42 Unspecified infection of urinary tract in pregnancy, second trimester (principal); O99.342 Other mental disorders complicating pregnancy, second trimester; F31.9 Bipolar disorder, unspecified; F43.10 Post-traumatic stress disorder, unspecified; F41.9 Anxiety disorder, unspecified; Z3A.16 16 weeks gestation of pregnancy; Z79.899 Other long term (current) drug therapy; Z87.891 Personal history of nicotine dependence; Z91.030 Bee allergy status; Z91.018 Allergy to other foods; Z88.0 Allergy status to penicillin; Z88.8 Allergy status to other drugs, medicaments and biological substances; Z98.890 Other specified postprocedural states
CPT/HCPCS: 36415; 80053; 83690; 85025; 81001; 87086; 99284; 96374; 96375 ×2; 96361 ×2; J1200; J2765; J0696; S0119

== ENCOUNTER 2019-09-13 16:33 | Emergency (ER) | payer OTHER ==
--- NOTE | 2019-09-13 17:01 | ED ---
Fall HPI - General Chief Complaint: Fall Stated Complaint: Fall, abd pain Time Seen by Provider: 09/13/19 16:40 Source: patient, RN notes reviewed, old records reviewed Mode of arrival: ambulatory Limitations: no limitations - History of Present Illness Initial Comments: This is a 28-year-old female to ER for evaluation as patient presents today for evaluation regards to fall. Patient's multiple recent falls. Patient is she believes and she had the seventh positive about 17 weeks. Patient was a slip and fall on ice has knee pain tried to follow-up with her OB was unable to give the office. Aside from some chronic lower extremities belly feels a little abdominal cramping but no bleeding no vaginal bleeding or dysuria no blood in the urine. No other injuries fall and patient is concerned that she may have may or may not of had or felt the baby move in the last day. MD Complaint: fall -: days(s) Fall From: standing When Fall Occurred: # days [employer], recurrent falls Fall Witnessed: no Place Fall Occurred: home Loss of Consciousness: none Prolonged Down Time?: no Symptoms Prior to Fall: none Location: abdomen Severity: mild Severity scale (1-10): 3 Context: tripped/slipped Associated Symptoms: denies - Related Data Home Medications Medication Instructions Recorded Confirmed Scot 1.5/30mcg 1 tab PO DAILY 04/07/19 04/07/19 Sertraline [Zoloft] 50 mg PO DAILY 04/07/19 04/07/19 diphenhydrAMINE HCL [Benadryl] 50 mg PO HS PRN 04/07/19 04/07/19 Previous Rx's Medication Instructions Recorded Ibuprofen [Motrin] 600 mg PO Q6HR PRN #30 tab 11/20/18 Cephalexin [Keflex] 500 mg PO Q8HR #21 cap 09/05/19 Allergies Allergy/AdvReac Type Severity Reaction Status Date / Time bee venom protein (honey bee) Allergy Swelling Verified 09/13/19 16:38 gonzalez Allergy Rash/Hives Verified 09/13/19 16:38 gonzalez flavor Allergy Rash/Hives Verified 09/13/19 16:38 Penicillins Allergy Unknown Verified 09/13/19 16:38 Childhood atomoxetine [From Strattera] AdvReac SUCIDAL Verified 09/13/19 16:38 quetiapine [From Seroquel] AdvReac Unknown Verified 09/13/19 16:38 Review of Systems ROS Statement: Those systems with pertinent positive or pertinent negative responses have been documented in the HPI. ROS Other: All systems not noted in ROS Statement are negative. Past Medical History Past Medical History: Asthma Additional Past Medical History / Comment(s): migraines History of Any Multi-Drug Resistant Organisms: None Reported Past Surgical History: Section Additional Past Surgical History / Comment(s): eye Past Anesthesia/Blood Transfusion Reactions: No Reported Reaction Past Psychological History: Anxiety, Bipolar, Depression, PTSD Smoking Status: Former smoker Past Alcohol Use History: Occasional Past Drug Use History: Marijuana - Past Family History Mother Family Medical History: COPD General Exam Limitations: no limitations General appearance: alert, in no apparent distress Head exam: Present: atraumatic, normocephalic, normal inspection Eye exam: Present: normal appearance, PERRL, EOMI. Absent: scleral icterus, conjunctival injection, periorbital swelling ENT exam: Present: normal exam, mucous membranes moist Neck exam: Present: normal inspection. Absent: tenderness, meningismus, lymphadenopathy Respiratory exam: Present: normal lung sounds bilaterally. Absent: respiratory distress, wheezes, rales, rhonchi, stridor Cardiovascular Exam: Present: regular rate, normal rhythm, normal heart sounds. Absent: systolic murmur, diastolic murmur, rubs, gallop, clicks GI/Abdominal exam: Present: soft, tenderness (abd pain), normal bowel sounds. Absent: distended, guarding, rebound, rigid Extremities exam: Present: normal inspection, full ROM, normal capillary refill. Absent: tenderness, pedal edema, joint swelling, calf tenderness Back exam: Present: normal inspection Neurological exam: Present: alert, oriented X3, CN II-XII intact Psychiatric exam: Present: normal affect, normal mood Skin exam: Present: warm, dry, intact, normal color. Absent: rash Course Vital Signs 09/13/19 09/13/19 16:34 18:47 Temperature 98.3 F Pulse Rate 73 89 Respiratory 18 16 Rate Blood Pressure 118/75 121/78 O2 Sat by Pulse 100 100 Oximetry - Reevaluation(s) Reevaluation #1: 09/13/19 19:14 medical record is reviewed Reevaluation #2: 09/13/19 19:14 patient is in no distress, no bleeding Medical Decision Making - Medical Decision Making 28 female here for evaluation. Patient presents today for evaluation status post fall from a fall possibility no significant findings on ultrasound. Patient can be discharged home we will culture urine for further evaluation - Lab Data Lab Results 09/13/19 Range/Units 17:18 Urine Color Yellow Urine Appearance Clear (Clear) Urine pH 6.5 (5.0-8.0) Ur Specific [place] 1.010 (1.001-1.035) Urine Protein Negative (Negative) Urine Glucose (UA) Negative (Negative) Urine Ketones Negative (Negative) Urine Blood Negative (Negative) Urine Nitrite Negative (Negative) Urine Bilirubin Negative (Negative) Urine Urobilinogen <2.0 (<2.0) mg/dL Ur Leukocyte Esterase Small H (Negative) Urine RBC 2 (0-5) /hpf Urine WBC 9 H (0-5) /hpf Ur Squamous Epith Cells 1 (0-4) /hpf Amorphous Sediment Rare H (None) /hpf Urine Mucus Rare H (None) /hpf Disposition Clinical Impression: Fall, Abdominal pain Disposition: HOME SELF-CARE Condition: Good Instructions (If sedation given, give patient instructions): Abdominal Pain (ED) Is patient prescribed a controlled substance at d/c from ED?: No Referrals: Farzana Beasley MD [Primary Care Provider] - 1-2 days
[2019-09-13 17:38] LABS: Amorphous Sediment,Urine Rare /hpf; Appearance,Urine Clear (Clear); Bilirubin,Urine Negative (Negative); Blood,Urine Negative (Negative); Color,Urine Yellow; Glucose,Urine (UA) Negative (Negative); Ketones,Urine Negative (Negative); Leukocyte Esterase,Urine Small (Negative); Mucus,Urine Rare /hpf; Nitrite,Urine Negative (Negative); PH, Urine 6.5 (5.0-8.0); Protein,Urine Negative (Negative); RBC,Urine 2 /hpf (0-5); Squamous Epithelial Cell,Urine 1 /hpf (0-4); Urobilinogen,Urine <2.0 mg/dL (<2.0); WBC,Urine 9 /hpf (0-5)
--- NOTE | 2019-09-13 19:01 | US ---
EXAMINATION TYPE: US OB >= 14 wk twins DATE OF EXAM: 09/13/2019 COMPARISON: NONE CLINICAL HISTORY: fall. Pt states fall, denies pain or bleeding GESTATIONAL AGE / DATING Physician Established: (17 weeks/4 days) EDC: 02/17/2020 Dates by LMP: Unknown Dates by First Scan: No prior Dates by Current Scan for Baby A: (17 weeks/4 days) EDC: 02/17/2020 Dates by Current Scan for Baby B: (17 weeks/4 days) EDC: 02/17/2020 GENERAL TWIN SURVEY TWIN A LOCATION in regards to maternal abd: Cephalic, maternal left TWIN B LOCATION in regards to maternal abd: Breech, maternal right MEMBRANE SEEN: Yes CERVICAL LENGTH (transabdominal; norm > 3.0cm): 3.5 cm TWIN A: SURVEY/BIOMETRY PLACENTA: Anterior PREVIA: No previa GILBERT:? 12.9 cm?Normal PRESENTATION: Vertex BPD: 4.0 cm 18 weeks / 0 days HC: 14.4 cm 17 weeks / 5 days AC: 11.7 cm 17 weeks / 3 days FL: 2.5 cm 17 weeks / 3 days ESTIMATED WEIGHT IN GRAMS: 197 grams ESTIMATED WEIGHT IN LBS/OZS: 0 lbs. 7 oz. WEIGHT PERCENTAGE BASED ON ESTABLISHED DATES: 39.4% HC/AC: 1.23 Normal FL/AC: 21 Normal HEART RATE: 143 bpm RHYTHM: Normal TWIN B: SURVEY/BIOMETRY PRESENTATION: Breech BPD: 4.0 cm 18 weeks / 0 days HC: 14.3 cm 17 weeks / 4 days AC: 11.7 cm 17 weeks / 3 days FL: 2.5 cm 17 weeks / 3 days ESTIMATED WEIGHT IN GRAMS: 195 grams ESTIMATED WEIGHT IN LBS/OZS: 0 lbs. 7 oz. WEIGHT PERCENTAGE BASED ON ESTABLISHED DATES: 37.2% HC/AC: 1.22 Normal FL/AC: 21 Normal HEART RATE: 141 bpm RHYTHM: Normal IMPRESSION: VIABLE TWIN GESTATION, WITH NO ABNORMALITY VISUALIZED AT THIS TIME.
[2019-09-13 19:47] VITALS: BP 123/63; PULSE 86; RESP 18; TEMP 98.6
== END 2019-09-13 19:47 | disposition home or self-care (01) ==
LOC: EC 16:33
DX: O9A.212 Injury, poisoning and certain other consequences of external causes complicating pregnancy, second trimester (principal); R10.9 Unspecified abdominal pain; F43.10 Post-traumatic stress disorder, unspecified; F41.9 Anxiety disorder, unspecified; F31.9 Bipolar disorder, unspecified; Z79.3 Long term (current) use of hormonal contraceptives; Z79.899 Other long term (current) drug therapy; Z91.018 Allergy to other foods; Z88.0 Allergy status to penicillin; Z88.8 Allergy status to other drugs, medicaments and biological substances; Z91.030 Bee allergy status; Z3A.17 17 weeks gestation of pregnancy; Z87.891 Personal history of nicotine dependence; W00.0XXA Fall on same level due to ice and snow, initial encounter
CPT/HCPCS: 76805; 76810; 81001; 99284

== ENCOUNTER 2019-10-23 23:01 | Emergency (ER) | payer OTHER ==
[2019-10-23 23:22] VITALS: RESP 20; TEMP 98.6
[2019-10-24 00:08] LABS: Appearance,Urine Clear (Clear); Bacteria,Urine Rare /hpf; Bilirubin,Urine Negative (Negative); Blood,Urine Negative (Negative); Color,Urine Light Yellow; Glucose,Urine (UA) Negative (Negative); Ketones,Urine 1+ (Negative); Leukocyte Esterase,Urine Small (Negative); Nitrite,Urine Negative (Negative); PH, Urine 6.5 (5.0-8.0); Protein,Urine Negative (Negative); RBC,Urine 1 /hpf (0-5); Specific Gravity,Urine 1.007 (1.001-1.035); Squamous Epithelial Cell,Urine 2 /hpf (0-4); Urobilinogen,Urine <2.0 mg/dL (<2.0); WBC,Urine 3 /hpf (0-5)
[2019-10-24 00:21] LABS: Amphetamine Screen,Urine Not Detected (NotDetected); Barbiturate Screen,Urine Not Detected (NotDetected); Benzodiazepines Screen,Urine Not Detected (NotDetected); Cocaine Screen,Urine Not Detected (NotDetected); Methadone Screen, Urine Not Detected (NotDetected); Opiate Screen,Urine Not Detected (NotDetected); Oxycodone Screen, Urine Not Detected (NotDetected); Phencyclidine Screen,Urine Not Detected (NotDetected); Tricyclic Antidepressant,Urine Not Detected (NotDetected); Urn Cannabinoid Scrn Detected (NotDetected)
[2019-10-24] MEDS ORDERED: CEPHALEXIN 500MG STARTER PACK 4 CAP BTL PO STA (01:15)
[2019-10-24] MEDS ORDERED: CEPHALEXIN 500 MG CAP PO STA (01:15)
--- NOTE | 2019-10-24 01:16 | ED ---
General Adult HPI - General Source: patient, EMS, RN notes reviewed, old records reviewed Mode of arrival: EMS Limitations: no limitations <Edwin Storey - Last Filed: 10/24/19 02:01> <Juan Clifford - Last Filed: 10/24/19 03:54> - General Chief complaint: Psychiatric Symptoms Stated complaint: Mental Health Time Seen by Provider: 10/23/19 23:05 - History of Present Illness Initial comments: 28-year-old female patient who is 23 weeks with twins presents to ED for suicidal ideations. Patient reports that she is very upset because she was told that she delivers her children they'll be taking a from her and she is up that she'll see them again. Ports that she is feeling suicidal because of this. Denies any action to hurt himself or harm others. Denies any vaginal bleeding abdominal pain. Denies any other complaints. Systemic: Pt denies fatigue, fever/chills, rash. Pt denies weakness, night sweats, weight loss. Neuro: Pt denies headache, visual disturbances, syncope or pre-syncope. HEENT: Pt denies ocular discharge or irritation, otalgia, rhinorrhea, pharyngitis or notable lymphadenopathy. Cardiopulmonary: Pt denies chest pain, SOB, heart palpitations, dyspnea on exertion. Abdominal/GI: Pt denies abdominal pain, n/v/d. : Pt denies dysuria, burning w/ urination, frequency/urgency. Denies new onset urinary or bowel incontinence. MSK: Pt denies myalgia, loss of strength or function in extremities. Neuro: Pt denies new onset weakness, paresthesias. (Edwin Storey) - Related Data Home Medications Medication Instructions Recorded Confirmed Scot 1.5/30mcg 1 tab PO DAILY 04/07/19 04/07/19 Sertraline [Zoloft] 50 mg PO DAILY 04/07/19 04/07/19 diphenhydrAMINE HCL [Benadryl] 50 mg PO HS PRN 04/07/19 04/07/19 Previous Rx's Medication Instructions Recorded Ibuprofen [Motrin] 600 mg PO Q6HR PRN #30 tab 11/20/18 Cephalexin [Keflex] 500 mg PO Q8HR #21 cap 09/05/19 Cephalexin [Keflex] 500 mg PO Q12HR 5 Days #10 cap 10/24/19 Allergies Allergy/AdvReac Type Severity Reaction Status Date / Time bee venom protein (honey bee) Allergy Swelling Verified 09/13/19 16:38 gonzalez Allergy Rash/Hives Verified 09/13/19 16:38 gonzalez flavor Allergy Rash/Hives Verified 09/13/19 16:38 Penicillins Allergy Unknown Verified 09/13/19 16:38 Childhood atomoxetine [From Strattera] AdvReac SUCIDAL Verified 09/13/19 16:38 quetiapine [From Seroquel] AdvReac Unknown Verified 09/13/19 16:38 Review of Systems ROS Other: All systems not noted in ROS Statement are negative. <Edwin Storey - Last Filed: 10/24/19 02:01> ROS Other: All systems not noted in ROS Statement are negative. <Juan Clifford - Last Filed: 10/24/19 03:54> ROS Statement: Those systems with pertinent positive or pertinent negative responses have been documented in the HPI. Past Medical History Past Medical History: Asthma Additional Past Medical History / Comment(s): migraines History of Any Multi-Drug Resistant Organisms: None Reported Past Surgical History: Section Additional Past Surgical History / Comment(s): eye Past Anesthesia/Blood Transfusion Reactions: No Reported Reaction Past Psychological History: Anxiety, Bipolar, Depression, PTSD, Schizophrenia Smoking Status: Current every day smoker Past Alcohol Use History: None Reported, Occasional Past Drug Use History: Marijuana - Past Family History Mother Family Medical History: COPD <Edwin Storey - Last Filed: 10/24/19 02:01> General Exam Limitations: no limitations <Edwin Storey - Last Filed: 10/24/19 02:01> - General Exam Comments Initial Comments: Constitutional: NAD, AOX3, Pt has pleasant affect. HEENT: NC/AT, trachea midline, neck supple, no lymphadenopathy. Posterior pharynx non erythematous, without exudates. External ears appear normal, without discharge. Mucous membranes moist. Eyes PERRLA, EOM intact. There is no scleral icterus. No pallor noted. Cardiopulmonary: RRR, no murmurs, rubs or gallops, no JVD noted. Lungs CTAB in anterior and posterior sotomayor. No peripheral edema. Abdominal exam: Abdomen soft and appropriately distended for . Abdomen non-tender to palpation in all 4 quadrants. Bowel sounds active in LLQ. No hepatosplenomegaly. No ecchymosis Neuro: CN II-XII grossly intact. No nuchal rigidity. No raccon eyes, no kenney sign, no hemotympanum. No cervical spinal tenderness. MSK: No posterior calf tenderness bilaterally, homans sign negative bilaterally. Posterior tibialis and radial pulse +2 bilaterally. Sensation intact in upper and lower extremities. Full active ROM in upper and lower extremities, 5/5 stregnth. (Edwin Storey) Course Vital Signs 10/23/19 23:11 Temperature 98.6 F Pulse Rate 79 Respiratory 20 Rate Blood Pressure 137/87 O2 Sat by Pulse 99 Oximetry Medical Decision Making <Edwin Storey - Last Filed: 10/24/19 02:01> - Medical Decision Making 28-year-old female patient went to ED for evaluation of psychiatric complaints, suicidal ideations. Denies any plan. Physical exam didn't display acute pathology. heart tones were obtained both in the 140s. UA displayed 3 white blood cells patient will be treated for asymptomatic bacteriuria with Keflex. Patient signed out to Dr. Walters pending psychiatric evaluation. (Edwin Storey) - Lab Data Lab Results 10/23/19 Range/Units 23:55 Urine Color Light Yellow Urine Appearance Clear (Clear) Urine pH 6.5 (5.0-8.0) Ur Specific [place] 1.007 (1.001-1.035) Urine Protein Negative (Negative) Urine Glucose (UA) Negative (Negative) Urine Ketones 1+ H (Negative) Urine Blood Negative (Negative) Urine Nitrite Negative (Negative) Urine Bilirubin Negative (Negative) Urine Urobilinogen <2.0 (<2.0) mg/dL Ur Leukocyte Esterase Small H (Negative) Urine RBC 1 (0-5) /hpf Urine WBC 3 (0-5) /hpf Ur Squamous Epith Cells 2 (0-4) /hpf Urine Bacteria Rare H (None) /hpf Urine Opiates Screen Not Detected (NotDetected) Ur Oxycodone Screen Not Detected (NotDetected) Urine Methadone Screen Not Detected (NotDetected) Ur Propoxyphene Screen Not Detected (NotDetected) Ur Barbiturates Screen Not Detected (NotDetected) U Tricyclic Antidepress Not Detected (NotDetected) Ur Phencyclidine Scrn Not Detected (NotDetected) Ur Amphetamines Screen Not Detected (NotDetected) U Methamphetamines Scrn Not Detected (NotDetected) U Benzodiazepines Scrn Not Detected (NotDetected) Urine Cocaine Screen Not Detected (NotDetected) U Marijuana (THC) Screen Detected H (NotDetected) Disposition <Edwin Storey - Last Filed: 10/24/19 02:01> Is patient prescribed a controlled substance at d/c from ED?: No <Juan Clifford - Last Filed: 10/24/19 03:54> Clinical Impression: Mood disorder, Bacteriuria during Disposition: HOME SELF-CARE Condition: Good Prescriptions: Cephalexin [Keflex] 500 mg PO Q12HR 5 Days #10 cap Referrals: Farzana Beasley MD [Primary Care Provider] - 1-2 days
[2019-10-24 04:36] VITALS: BP 116/58; PULSE 86
== END 2019-10-24 04:42 | disposition home or self-care (01) ==
LOC: EC 23:01
DX: O99.342 Other mental disorders complicating pregnancy, second trimester (principal); F31.9 Bipolar disorder, unspecified; F41.9 Anxiety disorder, unspecified; O99.89 Other specified diseases and conditions complicating pregnancy, childbirth and the puerperium; R82.71 Bacteriuria; O30.002 Twin pregnancy, unspecified number of placenta and unspecified number of amniotic sacs, second trimester; O99.332 Smoking (tobacco) complicating pregnancy, second trimester; F17.200 Nicotine dependence, unspecified, uncomplicated; Z3A.23 23 weeks gestation of pregnancy; Z79.899 Other long term (current) drug therapy; Z91.030 Bee allergy status; Z91.018 Allergy to other foods; Z88.0 Allergy status to penicillin; Z88.8 Allergy status to other drugs, medicaments and biological substances
CPT/HCPCS: 80306; 81001; 82075; 99285